=== PATIENT | male | born 1935 | race Caucasian/White ===

== ENCOUNTER → 2018-11-01 | Outpatient (CLI) | payer MEDICARE, BC ==
--- NOTE | 2018-11-01 13:24 | ECHOF ---
Referral Reason:R07.89 chest pain MEASUREMENTS -------- HEIGHT: 182.9 cm WEIGHT: 87.1 kg BP: RVIDd: 2.2 cm (< 3.3) IVSd: 1.1 cm (0.6 - 1.1) LVIDd: 3.5 cm (3.9 - 5.3) LVPWd: 1.3 cm (0.6 - 1.1) IVSs: 1.2 cm LVIDs: 2.3 cm LVPWs: 1.6 cm LA Diam: 5.7 cm (2.7 - 3.8) LAESV Index (A-L): 34.48 ml/m Ao Diam: 3.6 cm (2.0 - 3.7) AV Cusp: 1.9 cm (1.5 - 2.6) LA Diam: 3.4 cm (2.7 - 3.8) MV EXCURSION: 18.612 mm (> 18.000) MV EF SLOPE: 66 mm/s (70 - 150) EPSS: 0.5 cm MV E Cirilo: 0.74 m/s MV DecT: 275 ms MV A Cirilo: 0.79 m/s MV E/A Ratio: 0.94 RAP: 5.00 mmHg RVSP: 26.53 mmHg FINDINGS -------- Sinus rhythm. This was a technically good study. LV size, wall thickness and systolic function are normal, with an EF greater than 55%. The left monica tricular size is normal. The right ventricle is normal in size. The left atrium is markedly dilated. LA is moderately dilated 34-39 ml/m2 The right atrial size is normal. There is mild aortic valve sclerosis. There is no evidence of aortic regurgitation. Mild mitral annular calcification present. Mild mitral regurgitation is present. Mild tricuspid regurgitation present. There is no evidence of pulmonary hypertension. The right v entricular systolic pressure, as measured by Doppler, is 26.53mmHg. There is no pulmonic regurgitation present. The aortic root size is normal. There is no pericardial effusion. CONCLUSIONS -------- 1. LV size, wall thickness and systolic function are normal, with an EF greater than 55%. 2. The left ventricular size is normal. 3. The right ventricle is normal in size. 4. The left atrium is markedly dilated. 5. LA is moderately dilated 34-39 ml/m2 6. The right atrial size is normal. 7. There is mild aortic valve sclerosis. 8. Mild mitral annular calcification present. 9. Mild mitral regurgitation is present. 10. Mild tricuspid regurgitation present. 11. There is no evidence of pulmonary hypertension. 12. The right ventricular systolic pressure, as measured by Doppler, is 26.53mmHg. 13. There is no pulmonic regurgitation present. 14. The aortic root size is normal. 15. There is no pericardial effusion. HEARSE DRIVER: Jovita Daigle RDCS
--- NOTE | 2018-11-01 14:18 | EST ---
EXERCISE STRESS AGE: 82 SEX: M HT: 71 WT: 192 PROTOCOL: Kwabena Stress Test STAGE: 2 DURATION OF EXERCISE: 4:00 HEART RATE REST: 81 BLOOD PRESSURE REST: 157/92 MAXIMUM HEART RATE ACHIEVED: 118 MAXIMUM BLOOD PRESSURE: 157/67 85% MPHR: 117 100% MPHR: 138 METS: 5.8 INDICATIONS: Chest pain. CLINICAL INFORMATION: STRESS DATA: Pretesting physical examination showed heart rate of 81, pressure is 157/92 mmHg. Baseline EKG showed sinus mechanism. The patient exercised on the treadmill according to Kwabena protocol for a total of 4 minutes and achieved 5.8 METS. Max heart rate was 118, which is about 85% of maximum predicted heart rate. Maximum blood pressure was 157/67 mmHg. Clinically, the patient did not have any symptoms of chest pain or discomfort and the EKG did not show any significant ST or T-wave abnormalities concerning for ischemia. CONCLUSION: 1. Average exercise tolerance. 2. Normal EKG in response to exercise. 3. Essentially normal stress test for the patient. MMODL / IJN: [id number] /
== END | disposition home or self-care (01) ==
LOC: RADNMMAIN 10:54
PROVIDERS: ATTEND Nurse Practitioner Family
DX: I08.1 Rheumatic disorders of both mitral and tricuspid valves (principal); R10.84 Generalized abdominal pain; R07.89 Other chest pain
CPT/HCPCS: 93017; 93306

== ENCOUNTER → 2018-11-21 | Outpatient (CLI) | payer MEDICARE, BC ==
--- NOTE | 2018-11-21 13:10 | CT ---
EXAMINATION TYPE: CT abdomen wo con DATE OF EXAM: 11/21/2018 HISTORY: vomiting/ pain every 3rd day. GERD per order. CT DLP: 490 mGycm. Automated Exposure Control for Dose Reduction was Utilized. TECHNIQUE: CT scan of the abdomen is performed without oral or IV contrast. COMPARISON: Same day gallbladder ultrasound FINDINGS: Within the limitations of a non-contrast study, the following observations are made. LUNG BASES: In the left lung base medially there is focal pleural fluid collection measuring approxim ately 6.9 x 2.6 cm. Calcifications at level of mitral valve are noted. Tiny pericardial effusion is s een. LIVER/GB: Occasional subcentimeter lesions scattered throughout the liver are too small to further ch aracterize but presumed benign, for reference posterior segment right hepatic lobe axial image 14. PANCREAS: No significant abnormality is seen. SPLEEN: No significant abnormality is seen. ADRENALS: No significant abnormality is seen. KIDNEYS: There are 3 small calculi scattered throughout the right kidney measuring 3 mm or smaller in size. There are suspected 4-5 small calculi scattered throughout the left kidney measuring 2 mm or s maller in size. There is asymmetric mild generalized atrophy with mild/moderate cortical thinning in the left kidney. In addition there is mild to moderate left-sided hydronephrosis due to multiple obst ructing proximal to mid ureter calculi difficult to accurately measure due to confluent appearance, l argest measures up to 15 mm long axis axial image 45. I suspect 3 adjacent ureter calculi. Distal to this no hydroureter are seen. BOWEL: Evaluation of the bowel is slightly suboptimal study due to lack of enteric contrast. Distal e sophagus is suboptimally evaluated due to poor distention. There is mild fat stranding near the gastr oesophageal junction just below diaphragm. Stomach is poorly distended and thus suboptimally evaluate d. Duodenal sweep shows a few small diverticula along mesenteric surface third portion of duodenum me asuring up to 11 mm. There is no suspicious small or large bowel dilatation. There are scattered colo kemi diverticula without CT evidence for acute diverticulitis. LYMPH NODES: No greater than 1cm abdominal lymph nodes are appreciated. OSSEOUS STRUCTURES: There is moderate multilevel disc space narrowing and vacuum disc phenomenon as w ell as anterior spurring L2-L3 through the L5-S1 levels. Demineralization is present. OTHER: Moderate calcified plaque of aorta extends into branch vessels. IMPRESSION: 1. Suboptimal evaluation of distal esophagus and stomach without enteric contrast. Overall nonobstruc tive bowel gas pattern. Diffuse colonic diverticulosis noted. 2. Mild fat stranding or inflammatory change epigastric region just below diaphragm could be product of a diffuse gastritis, correlate clinically. 3. Bilateral nephrolithiasis with suspected 3 calculi measuring up to 15 mm in the proximal to mid le ft ureter causing mild to moderate left-sided hydronephrosis and cortical atrophy. Urology referral a dvised if this is not known finding. 4. Focal left medial basilar pleural fluid collection of uncertain etiology. Consider dedicated chest CT to further evaluate the remainder of the thorax.
--- NOTE | 2018-11-21 13:22 | US ---
EXAMINATION TYPE: US gallbladder DATE OF EXAM: 11/21/2018 COMPARISON: Same day CT abdomen study. CLINICAL HISTORY: R10.84 Abdominal Pain K21.9 GERD R63.4. GERD, pt states vomiting EXAM MEASUREMENTS: Liver Length: 16.1 cm Gallbladder Wall: 0.2 cm CBD: 0.2 cm Right Kidney: 11.0 x 5.4 x 5.9 cm Pancreas: Obscured by bowel gas Liver: wnl Gallbladder: wnl Evidence for sonographic Chen's sign: No CBD: wnl Right Kidney: wnl Pancreas is suboptimally seen on images saved secondary to shadowing from overlying bowel gas but cristóbal ears within normal limits on same day CT. Visualized liver is heterogeneous without intrahepatic duct al dilatation. Evaluation for focal masses is suboptimal due to the heterogeneity. Limited images of right kidney show no gross hydronephrosis. Small renal calculi on CT are less well seen on ultrasound . Gallbladder is seen without shadowing mobile gallstones. IMPRESSION: Suboptimal study but no shadowing mobile gallstones or ultrasound evidence for acute chol ecystitis.
== END | disposition home or self-care (01) ==
LOC: RADUSMAIN 11:56
PROVIDERS: ATTEND Family Medicine
DX: K57.30 Diverticulosis of large intestine without perforation or abscess without bleeding (principal); N26.1 Atrophy of kidney (terminal); N13.2 Hydronephrosis with renal and ureteral calculous obstruction; R63.4 Abnormal weight loss; R10.84 Generalized abdominal pain; K21.9 Gastro-esophageal reflux disease without esophagitis
CPT/HCPCS: 74150; 76705

== ENCOUNTER 2018-11-27 06:34 | Emergency (ER) | payer MEDICARE, BC ==
[2018-11-27] MEDS ORDERED: FAMOTIDINE 20 MG/2 ML VIAL IV STA (07:37)
[2018-11-27] MEDS ORDERED: ONDANSETRON 4 MG/2 ML VIAL IVP STA (07:37)
[2018-11-27] MEDS ORDERED: SODIUM CHLORIDE 0.9% 500 ML 500 ML IV STA (07:37)
--- NOTE | 2018-11-27 07:47 | ED ---
General Adult HPI - General Chief complaint: Abdominal Pain Stated complaint: Abdominal Pain Time Seen by Provider: 11/27/18 07:23 Source: patient, RN notes reviewed, old records reviewed Mode of arrival: ambulatory Limitations: no limitations - History of Present Illness Initial comments: Patient is an 82-year-old male presented to the emergency room today with a chief complaint of abdominal pain with nausea vomiting. Patient states she's had symptoms on and off over the last 2 months. He states she's follow-up the family doctor's had multiple test obtained. Patient states that the pain seems to come and go every other day. He states he woke up in the middle of night with increased pain had a difficult time sleeping. He did have episodes nausea vomiting with some dry heaving. Patient states the pain at this time is improved. Also admits that nausea is improved. Patient denies any other complaints or symptoms currently. Does admit that he is followed up and had an EGD performed. He states he seen a Dr Mancera. She also admits that he is supposed to follow-up with GI later next week to see Dr. Willoughby. Patient denies any recent fever, chills, shortness of breath, chest pain, back pain, numbness or tingling, dysuria or hematuria, constipation or diarrhea, headaches or visual changes, or any other complaints. - Related Data Home Medications Medication Instructions Recorded Confirmed Omeprazole 40 mg PO DAILY 11/27/18 11/27/18 Previous Rx's Medication Instructions Recorded Famotidine [Pepcid] 20 mg PO BID #20 tablet 11/27/18 Ondansetron Odt [Zofran ODT] 4 mg PO Q8HR PRN #20 tab 11/27/18 Allergies Allergy/AdvReac Type Severity Reaction Status Date / Time No Known Allergies Allergy Verified 11/27/18 08:20 Review of Systems ROS Statement: Those systems with pertinent positive or pertinent negative responses have been documented in the HPI. ROS Other: All systems not noted in ROS Statement are negative. Past Medical History Past Medical History: Diabetes Mellitus Additional Past Medical History / Comment(s): blood clots, spots on liver History of Any Multi-Drug Resistant Organisms: None Reported Past Surgical History: No Surgical Hx Reported Past Anesthesia/Blood Transfusion Reactions: Unable to Obtain Past Psychological History: No Psychological Hx Reported Smoking Status: Former smoker Past Alcohol Use History: Rare Past Drug Use History: None Reported General Exam - General Exam Comments Initial Comments: General: The patient is awake and alert, in no distress, and does not appear acutely ill. Eye: There is normal conjunctiva bilaterally. No signs of icterus. Ears, nose, mouth and throat: There are moist mucous membranes and no oral le sions. Neck: The neck is supple, there is no tenderness or JVD. Cardiovascular: There is a regular rate and rhythm. No murmur, rub or gallop is appreciated. Respiratory: Lungs are clear to auscultation, respirations are non-labored, breath sounds are equal. No wheezes, stridor, rales, or rhonchi. Gastrointestinal: Abdomen soft nontender on exam. Rebound, guarding or CVA tenderness. Musculoskeletal: Normal ROM, no tenderness. Strength 5/5. Sensation intact. Pulses equal bilaterally 2+. Neurological: A&O x 3. CN II-XII intact, There are no obvious motor or sensory deficits. Coordination appears grossly intact. Speech is normal. Skin: Skin is warm and dry and no rashes or lesions are noted. Psychiatric: Cooperative, appropriate mood & affect, normal judgment. Limitations: no limitations Course Vital Signs 11/27/18 07:04 Temperature 98.2 F Pulse Rate 81 Respiratory 20 Rate Blood Pressure 136/76 O2 Sat by Pulse 97 Oximetry Medical Decision Making - Medical Decision Making Patient examined at this time shows no signs of distress. Patient's labs been reviewed. X-ray reviewed and does show passes of a previous seen a kidney s tone. Was discussed with patient about possibility of stones causing some the symptoms. He does have an appointment with his urologist. Also has an appointment with GI. At this time patient's feeling better after Zofran, Pepcid. Will be given these as prescriptions to go home with. Patient will be advised follow-up the family doctor. Is advised return if any symptoms increase worsen or for any other concerns. - Lab Data Result diagrams: 11/27/18 08:30 11/27/18 08:30 Lab Results 11/27/18 11/27/18 11/27/18 Range/Units 08:30 08:30 08:30 WBC 7.8 (3.8-10.6) k/uL RBC 4.50 (4.30-5.90) m/uL Hgb 13.4 (13.0-17.5) gm/dL Hct 42.0 (39.0-53.0) % MCV 93.4 (80.0-100.0) fL MCH 29.9 (25.0-35.0) pg MCHC 32.0 (31.0-37.0) g/dL RDW 14.2 (11.5-15.5) % Plt Count 223 (150-450) k/uL Neutrophils % 84 % Lymphocytes % 7 % Monocytes % 7 % Eosinophils % 1 % Basophils % 0 % Neutrophils # 6.6 (1.3-7.7) k/uL Lymphocytes # 0.6 L (1.0-4.8) k/uL Monocytes # 0.5 (0-1.0) k/uL Eosinophils # 0.1 (0-0.7) k/uL Basophils # 0.0 (0-0.2) k/uL Sodium 139 (137-145) mmol/L Potassium 4.7 (3.5-5.1) mmol/L Chloride 107 (98-107) mmol/L Carbon Dioxide 24 (22-30) mmol/L Anion Gap 8 mmol/L BUN 23 H (9-20) mg/dL Creatinine 0.96 (0.66-1.25) mg/dL Est GFR (CKD-EPI)AfAm 85 (>60 ml/min/1.73 sqM) Est GFR (CKD-EPI)NonAf 74 (>60 ml/min/1.73 sqM) Glucose 152 H (74-99) mg/dL Calcium 9.1 (8.4-10.2) mg/dL Total Bilirubin 0.6 (0.2-1.3) mg/dL AST 21 (17-59) U/L ALT 27 (21-72) U/L Alkaline Phosphatase 64 (38-126) U/L Total Protein 6.2 L (6.3-8.2) g/dL Albumin 3.5 (3.5-5.0) g/dL Amylase 63 (30-110) U/L Lipase 98 (23-300) U/L Urine Color Yellow Urine Appearance Clear (Clear) Urine pH 7.0 (5.0-8.0) Ur Specific [place] 1.018 (1.001-1.035) Urine Protein Trace H (Negative) Urine Glucose (UA) Negative (Negative) Urine Ketones Negative (Negative) Urine Blood Negative (Negative) Urine Nitrite Negative (Negative) Urine Bilirubin Negative (Negative) Urine Urobilinogen <2.0 (<2.0) mg/dL Ur Leukocyte Esterase Negative (Negative) Disposition Clinical Impression: Abdominal pain Disposition: HOME SELF-CARE Condition: Good Instructions (If sedation given, give patient instructions): Abdominal Pain (ED) Additional Instructions: Please use medication as discussed. Please follow-up with urology/GI family doctor in the next 2 days of symptoms have not improved. Please return to emergency room if the symptoms increase or worsen or for any other concerns. Prescriptions: Famotidine [Pepcid] 20 mg PO BID #20 tablet Ondansetron Odt [Zofran ODT] 4 mg PO Q8HR PRN #20 tab PRN Reason: Nausea Is patient prescribed a controlled substance at d/c from ED?: No Referrals: Rafael Marcelino Jr, [Primary Care Provider] - 1-2 days Time of Disposition: 09:39
[2018-11-27 08:53] LABS: Appearance,Urine Clear (Clear); Bilirubin,Urine Negative (Negative); Blood,Urine Negative (Negative); Color,Urine Yellow; Glucose,Urine (UA) Negative (Negative); Ketones,Urine Negative (Negative); Leukocyte Esterase,Urine Negative (Negative); Nitrite,Urine Negative (Negative); Protein,Urine Trace (Negative); Specific Gravity,Urine 1.018 (1.001-1.035); Urobilinogen,Urine <2.0 mg/dL (<2.0)
[2018-11-27 09:00] LABS: Basophils % (A) 0 %; Eosinophils # (A) 0.1 k/uL (0-0.7); Eosinophils % (A) 1 %; HGB 13.4 gm/dL (13.0-17.5); Lymphocytes # (A) 0.6 k/uL (1.0-4.8); Lymphocytes % (A) 7 %; MCH 29.9 pg (25.0-35.0); MCV 93.4 fL (80.0-100.0); Mean Platelet Volume 7.1; Monocytes # (A) 0.5 k/uL (0-1.0); Monocytes % (A) 7 %; Neutrophils # (A) 6.6 k/uL (1.3-7.7); Neutrophils % (A) 84 %; Platelet Count 223 k/uL (150-450); RDW 14.2 % (11.5-15.5); WBC 7.8 k/uL (3.8-10.6)
--- NOTE | 2018-11-27 09:02 | XR ---
EXAMINATION TYPE: XR KUB DATE OF EXAM: 11/27/2018 8:56 AM CLINICAL HISTORY: Intermittent abdominal pain and vomiting TECHNIQUE: Single supine KUB image of the abdomen is obtained. COMPARISON: 11/16/2009. FINDINGS: There are multiple rounded calculi along the course of the left ureter that were located al brian the left renal shadow in 2009. These mold technician 1.7 cm, 1.0 cm and 0.7 cm. Multiple new calcificati ons are also seen within the pelvis that may represent phleboliths or less likely urinary bladder mercy culi. Stable right renal calculus is approximately 8 mm is seen in comparison to thousand 10. The pre viously seen 5 mm calculus is no longer visualized. Moderate degenerative changes are seen of the thoracolumbar spine with likely degenerative sclerosis at the pubic symphysis and sacroiliac joints inferiorly. No dilated large or small bowel. Lung bases are well aerated. IMPRESSION: 1. There are 3 calculi along the course of the left ureter previously seen overlying the left renal s hadow in 2009. 2. Interval passage of a 5 mm right renal calculus and unchanged 8 mm right renal calculus.
[2018-11-27 09:08] LABS: Albumin 3.5 g/dL (3.5-5.0); Calcium 9.1 mg/dL (8.4-10.2); Potassium 4.7 mmol/L (3.5-5.1); Total Bilirubin 0.6 mg/dL (0.2-1.3); Total Protein 6.2 g/dL (6.3-8.2)
[2018-11-27 10:10] VITALS: BP 140/76; PULSE 64; RESP 18; TEMP 97.8
== END 2018-11-27 10:10 | disposition home or self-care (01) ==
LOC: EC 06:34
DX: R10.9 Unspecified abdominal pain (principal); R11.2 Nausea with vomiting, unspecified; Z79.899 Other long term (current) drug therapy; Z87.891 Personal history of nicotine dependence
CPT/HCPCS: 36415; 80053; 82150; 83690; 85025; 81003; 74018; 99284; 96374; 96375; 96361; J2405

== ENCOUNTER 2018-12-11 14:56 | Inpatient (IN) | payer MEDICARE, BC ==
[2018-12-11] MEDS ORDERED: NITROGLYCERIN OINT 1 INCH/GM PACKET TOPICAL STA (15:18)
[2018-12-11] MEDS ORDERED: ASPIRIN 81 MG PO STA (15:18)
--- NOTE | 2018-12-11 15:26 | ED ---
General Adult HPI - General Chief complaint: Chest Pain Stated complaint: Kidney stones, chest pain Time Seen by Provider: 12/11/18 15:00 Source: patient, RN notes reviewed Mode of arrival: ambulatory Limitations: no limitations - History of Present Illness Initial comments: This is an 82-year-old male who presents emergency Department complaining of ab dominal pain that radiates into his chest and down his left arm. Patient states his been ongoing intermittently for the last 6 months. Patient states today's episode lasted 2 hours. Patient states associated with the pain is usually some nausea. Patient states he had a kidney stone removed yesterday and when he called his urologist urologist recommended he come to the emergency department for the chest pain. Patient states currently he is chest pain-free. Patient denies any radiation to the back or neck. Patient denies any history of high blood pressure or high cholesterol. Patient states he is a diabetic but he does not smoke. Patient denies any associated diaphoresis. Patient denies any leg swelling or calf tenderness. Patient states he does not notice anything that makes symptoms better or worse. Patient states he has had a recent stress test which was normal. - Related Data Home Medications Medication Instructions Recorded Confirmed Acetaminophen Tab [Tylenol Tab] 650 mg PO Q4H PRN 12/11/18 12/11/18 Allergies Allergy/AdvReac Type Severity Reaction Status Date / Time No Known Allergies Allergy Verified 12/11/18 15:13 Review of Systems ROS Statement: Those systems with pertinent positive or pertinent negative responses have been documented in the HPI. ROS Other: All systems not noted in ROS Statement are negative. Past Medical History Past Medical History: Diabetes Mellitus Additional Past Medical History / Comment(s): blood clots, spots on liver History of Any Multi-Drug Resistant Organisms: None Reported Past Surgical History: No Surgical Hx Reported Past Anesthesia/Blood Transfusion Reactions: Unable to Obtain Past Psychological History: No Psychological Hx Reported Smoking Status: Former smoker Past Alcohol Use History: Rare Past Drug Use History: None Reported General Exam - General Exam Comments Initial Comments: GENERAL: Patient is well-developed and well-nourished. Patient is nontoxic and well- hydrated and is in mild distress. ENT: Neck is soft and supple. No significant lymphadenopathy is noted. Oropharynx is clear. Moist mucous membranes. Neck has full range of motion without eliciting any pain. EYES: The sclera were anicteric and conjunctiva were pink and moist. Extraocular mo vements were intact and pupils were equal round and reactive to light. Eyelids were unremarkable. PULMONARY: Unlabored respirations. Good breath sounds bilaterally. No audible rales rhonchi or wheezing was noted. CARDIOVASCULAR: There is a regular rate and rhythm without any murmurs gallops or rubs. ABDOMEN: Soft and nontender with normal bowel sounds. No palpable organomegaly was noted. There is no palpable pulsatile mass. SKIN: Skin is clear with no lesions or rashes and otherwise unremarkable. NEUROLOGIC: Patient is alert and oriented x3. Cranial nerves II through XII are grossly intact. Motor and sensory are also intact. Normal speech, volume and content. Symmetrical smile. MUSCULOSKELETAL: Normal extremities with adequate strength and full range of motion. LYMPHATICS: No significant lymphadenopathy is noted PSYCHIATRIC: Normal psychiatric evaluation. Limitations: no limitations Course Vital Signs 12/11/18 12/11/18 14:59 17:36 Temperature 98.3 F 98.1 F Pulse Rate 88 84 Respiratory 16 17 Rate Blood Pressure 209/101 117/81 O2 Sat by Pulse 97 97 Oximetry Medical Decision Making - Medical Decision Making EKG shows normal sinus rhythm at 87 bpm WA interval 280 QRS is 98 QT interval 380 QTC is 457. Patient's EKG shows no ST segment elevation or depression or T wave abnormalities are noted. Patient was nauseated while in the emergency department vomited times one. I gave the patient Zofran. Patient stated after the vomiting he didn't feel considerably better. Patient's blood pressure was elevated in the emergency department give the patient on hydralazine about patient blood pressure into a normal range. Chest x-ray showed a large hiatal hernia on the left. I spoke with Dr. Marcelino he agreed to admit the patient admitted the patient I consult cardiology. I wrote admitting orders. - Lab Data Result diagrams: 12/11/18 15:45 12/11/18 15:45 Lab Results 12/11/18 12/11/18 12/11/18 Range/Units 15:45 15:45 15:45 WBC 5.8 (3.8-10.6) k/uL RBC 4.61 (4.30-5.90) m/uL Hgb 14.0 (13.0-17.5) gm/dL Hct 43.2 (39.0-53.0) % MCV 93.7 (80.0-100.0) fL MCH 30.3 (25.0-35.0) pg MCHC 32.3 (31.0-37.0) g/dL RDW 13.9 (11.5-15.5) % Plt Count 215 (150-450) k/uL Neutrophils % 77 % Lymphocytes % 12 % Monocytes % 6 % Eosinophils % 2 % Basophils % 1 % Neutrophils # 4.5 (1.3-7.7) k/uL Lymphocytes # 0.7 L (1.0-4.8) k/uL Monocytes # 0.4 (0-1.0) k/uL Eosinophils # 0.1 (0-0.7) k/uL Basophils # 0.0 (0-0.2) k/uL PT 9.7 (9.0-12.0) sec INR 0.9 (<1.2) APTT 22.6 (22.0-30.0) sec Sodium 142 (137-145) mmol/L Potassium 4.6 (3.5-5.1) mmol/L Chloride 104 (98-107) mmol/L Carbon Dioxide 29 (22-30) mmol/L Anion Gap 9 mmol/L BUN 26 H (9-20) mg/dL Creatinine 1.15 (0.66-1.25) mg/dL Est GFR (CKD-EPI)AfAm 69 (>60 ml/min/1.73 sqM) Est GFR (CKD-EPI)NonAf 59 (>60 ml/min/1.73 sqM) Glucose 107 H (74-99) mg/dL Calcium 9.7 (8.4-10.2) mg/dL Magnesium 1.7 (1.6-2.3) mg/dL Total Bilirubin 0.5 (0.2-1.3) mg/dL AST 32 (17-59) U/L ALT 37 (21-72) U/L Alkaline Phosphatase 79 (38-126) U/L Troponin I (0.000-0.034) ng/mL Total Protein 6.7 (6.3-8.2) g/dL Albumin 3.9 (3.5-5.0) g/dL 12/11/18 Range/Units 15:45 WBC (3.8-10.6) k/uL RBC (4.30-5.90) m/uL Hgb (13.0-17.5) gm/dL Hct (39.0-53.0) % MCV (80.0-100.0) fL MCH (25.0-35.0) pg MCHC (31.0-37.0) g/dL RDW (11.5-15.5) % Plt Count (150-450) k/uL Neutrophils % % Lymphocytes % % Monocytes % % Eosinophils % % Basophils % % Neutrophils # (1.3-7.7) k/uL Lymphocytes # (1.0-4.8) k/uL Monocytes # (0-1.0) k/uL Eosinophils # (0-0.7) k/uL Basophils # (0-0.2) k/uL PT (9.0-12.0) sec INR (<1.2) APTT (22.0-30.0) sec Sodium (137-145) mmol/L Potassium (3.5-5.1) mmol/L Chloride (98-107) mmol/L Carbon Dioxide (22-30) mmol/L Anion Gap mmol/L BUN (9-20) mg/dL Creatinine (0.66-1.25) mg/dL Est GFR (CKD-EPI)AfAm (>60 ml/min/1.73 sqM) Est GFR (CKD-EPI)NonAf (>60 ml/min/1.73 sqM) Glucose (74-99) mg/dL Calcium (8.4-10.2) mg/dL Magnesium (1.6-2.3) mg/dL Total Bilirubin (0.2-1.3) mg/dL AST (17-59) U/L ALT (21-72) U/L Alkaline Phosphatase (38-126) U/L Troponin I <0.012 (0.000-0.034) ng/mL Total Protein (6.3-8.2) g/dL Albumin (3.5-5.0) g/dL Disposition Clinical Impression: Chest pain, Hypertension, Hiatal hernia, Nausea Disposition: ADMITTED IP TO THIS [facility] Referrals: Rafael Marcelino Jr, DO [Primary Care Provider] - 1-2 days Time of Disposition: 17:43
[2018-12-11 15:56] LABS: Basophils % (A) 1 %; Eosinophils # (A) 0.1 k/uL (0-0.7); Eosinophils % (A) 2 %; HCT 43.2 % (39.0-53.0); Lymphocytes # (A) 0.7 k/uL (1.0-4.8); Lymphocytes % (A) 12 %; MCH 30.3 pg (25.0-35.0); MCHC 32.3 g/dL (31.0-37.0); MCV 93.7 fL (80.0-100.0); Mean Platelet Volume 6.7; Monocytes # (A) 0.4 k/uL (0-1.0); Monocytes % (A) 6 %; Neutrophils # (A) 4.5 k/uL (1.3-7.7); Neutrophils % (A) 77 %; Platelet Count 215 k/uL (150-450); RBC 4.61 m/uL (4.30-5.90); RDW 13.9 % (11.5-15.5); WBC 5.8 k/uL (3.8-10.6)
[2018-12-11 16:08] LABS: Albumin 3.9 g/dL (3.5-5.0); Calcium 9.7 mg/dL (8.4-10.2); Magnesium 1.7 mg/dL (1.6-2.3); Potassium 4.6 mmol/L (3.5-5.1); Total Bilirubin 0.5 mg/dL (0.2-1.3); Total Protein 6.7 g/dL (6.3-8.2)
--- NOTE | 2018-12-11 16:09 | XR ---
EXAMINATION TYPE: XR chest 2V DATE OF EXAM: 12/11/2018 COMPARISON: Correlation CT 11/21/2018 HISTORY: 82-year-old male with chest pain TECHNIQUE: PA and lateral views FINDINGS: Heart normal size. Aorta and pulmonary vasculature are within normal limits. There is an-year-old rou nded density in the retrocardiac region and left base with an air-fluid level, likely herniated stoma ch. Remaining lungs and pleural spaces appear clear. IMPRESSION: New large rounded retrocardiac and left basilar density containing an air-fluid level. Given findings on the CT of 11/21/2018, this suggests prominent distention of a moderate sized hernia.
[2018-12-11 16:15] LABS: INR 0.9 (<1.2); Partial Thromboplastin Time 22.6 sec (22.0-30.0); Prothrombin Time 9.7 sec (9.0-12.0)
[2018-12-11] MEDS ORDERED: hydrALAZINE HCL 20 MG/ML 1 ML VIAL IVP STA ×2 (16:23)
[2018-12-11] MEDS ORDERED: ONDANSETRON 4 MG/2 ML VIAL IVP STA (17:33)
[2018-12-11] MEDS ORDERED: NITROGLYCERIN SL TABS 0.4 MG TAB SUBLINGUAL PRN (17:43)
[2018-12-11] MEDS ORDERED: ACETAMINOPHEN TAB 325 MG TAB PO PRN (18:35)
[2018-12-11] MEDS ORDERED: ACETAMINOPHEN TAB 325 MG TAB PO STA (18:37)
[2018-12-11] MEDS: NITROGLYCERIN OINT 1 INCH/GM PACKET TOPICAL SCH (19:13)
[2018-12-11 20:51] LABS: Glucose,Whole Blood 130 mg/dL (75-99)
[2018-12-11] MEDS ORDERED: HYDROcodone/APAP 5-325MG 1 EACH TAB PO PRN (21:24)
[2018-12-12] MEDS: NITROGLYCERIN OINT 1 INCH/GM PACKET TOPICAL SCH
[2018-12-12] MEDS ORDERED: ONDANSETRON 4 MG/2 ML VIAL IVP PRN (02:10)
[2018-12-12] MEDS: hydrALAZINE HCL 20 MG/ML 1 ML VIAL IVP SCH ×3 (02:28→20:07)
[2018-12-12 04:03] LABS: Cholesterol 209 mg/dL (<200); HDL Cholesterol 62 mg/dL (40-60); LDL Cholesterol,Calculated 125 mg/dL (0-99); Triglycerides 108 mg/dL (<150)
[2018-12-12 06:39] LABS: Glucose,Whole Blood 196 mg/dL (75-99)
--- NOTE | 2018-12-12 10:29 | P.CRDCN ---
History of Present Illness History of present illness: This is a pleasant 82-year-old male past medical history significant for former nicotine dependence, diabetes mellitus and kidney stones with recent lithotripsy per Dr. Wallace 12/10/2018. He recently established in the office with Dr. Willoughby due to chest pain. He underwent an exercise stress test in October that was normal but with poor exercise tolerance. He also continued to have vague atypical non-specific chest pains thereafter. Dr. Willoughby has him scheduled to undergo a nuclear stress test tomorrow in the office. However he came to the emergency department due to significant abdominal pain, nausea and vomiting. He states his symptoms started yesterday and has been getting progressively worse. Initially after surgery he was asymptomatic. He called Dr. Wallace and was advised to come in for further evaluation. He does have intermittent discomfort in the chest that radiates up from the abdomen described as a tight sensation that is not associated with exertion. He denies shortness of breath, dizziness or palpitations. He states he has seen Dr. Mancera in the past for his hernia and was recommended no surgical intervention at that time. Currently he is seen and examined resting comfortably in bed laying flat. He has ongoing nausea and pain in the left lower abdomen. No active vomiting and his chest pain has subsided. EKG reveals sinus mechanism with poor R-wave progression. Consistent with previous EKGs. No acute changes. Chest x-ray obtained reveals left basilar fluid filled collection density possible large hiatal hernia. Laboratory data reviewed, WBC 5.8, hemoglobin 14, platelets 215, sodium 142, potassium 4.6, creatinine 1.15, magnesium 1.7, cardiac enzymes negative 3, LDL 125 and HDL 62. He takes no daily cardiac medications. At the time of my exam: CONSTITUTIONAL: Denies fever. Denies chills. EYES: Denies blurred vision. Denies vision changes. Denies eye pain. EARS, NOSE, MOUTH & THROAT: Denies headache. Denies sore throat. Denies ear pain. CARDIOVASCULAR: Denies chest pain. Denies shortness of breath. Denies orthopnea. Denies PND. Denies palpitations. RESPIRATORY: Denies cough. GASTROINTESTINAL: Complains of abdominal pain. Denies diarrhea. Denies constipation. Complains of nausea and vomiting. MUSCULOSKELETAL: Denies myalgias. INTEGUMENTARY: Denies pruitis. Denies rash. NEUROLOGIC: Denies numbness. Denies tingling. Denies weakness. PSYCHIATRIC: Denies anxiety. Denies depression. ENDOCRINE: Denies fatigue. Denies weight change. Denies polydipsia. Denies polyurina. GENITOURINARY: Denies burning, hematuria or urgency with micturation. HEMATOLOGIC: Denies history of anemia. Denies bleeding. Blood pressure 184/99 heart rate 98 afebrile maintaining oxygen saturation on room air GENERAL: This is a 82-year-old male in no apparent distress at the time of my examination. HEENT: Head is atraumatic, normocephalic. Pupils are equal, round. Sclerae anicteric. Conjunctivae are clear. Mucous membranes of the mouth are moist. Neck is supple. There is no jugular venous distention. No carotid bruit is heard. LUNGS: Clear to auscultation no wheezes, rales or rhonchi. No chest wall tenderness is noted on palpation or with deep breathing. HEART: Regular rate and rhythm without murmurs, rubs or gallops. S1 and S2 heard. ABDOMEN: Soft, nontender. Bowel sounds are heard. No organomegaly noted. EXTREMITIES: No evidence of peripheral edema and no calf tenderness noted. VASCULAR: Radial and dorsalis pedis pulses palpated, no evidence of clubbing. NEUROLOGIC: Patient is awake, alert and oriented x3. ASSESSMENT Chest pain, atypical for angina. An acute coronary event has been ruled out. Abdominal discomfort with nausea and vomiting Hiatal hernia History of kidney stones status post surgical removal December 10, [address] Wallace PLAN Recommend further evaluation of hiatal hernia with CT of the chest. Consult with surgery, the patient has seen Dr. Stinson in the past. Once he has been seen and evaluated by Dr. Wallace and Dr. Mancera we will consider doing his nuclear stress test while he is here in the hospital. Further recommendations to follow. Thank you kindly for this consultation. Nurse Practitioner note has been reviewed, I agree with a documented findings and plan of care. Patient was seen and examined. Past Medical History Past Medical History: Diabetes Mellitus Additional Past Medical History / Comment(s): blood clots, spots on liver History of Any Multi-Drug Resistant Organisms: None Reported Past Surgical History: No Surgical Hx Reported Additional Past Surgical History / Comment(s): kidney stones removed Past Anesthesia/Blood Transfusion Reactions: No Reported Reaction Additional Past Anesthesia/Blood Transfusion Reaction / Comment(s): First time having anesthesia yesterday 12/10/18 for kidney stone removal. Pt states that he did not have any side effects to anesthesia. Past Psychological History: No Psychological Hx Reported Smoking Status: Former smoker Past Alcohol Use History: Rare Additional Past Alcohol Use History / Comment(s): Quit smoking 40 years ago. pt states that he smoked about 1 pack per week. Past Drug Use History: None Reported - Past Family History Mother Family Medical History: Diabetes Mellitus Additional Family Medical History / Comment(s): kidney failure. at 49 Father Additional Family Medical History / Comment(s): Parkinson's Medications and Allergies Home Medications Medication Instructions Recorded Confirmed Type Acetaminophen Tab [Tylenol Tab] 650 mg PO Q4H PRN 12/11/18 12/11/18 History Allergies Allergy/AdvReac Type Severity Reaction Status Date / Time No Known Allergies Allergy Verified 12/11/18 15:13 Physical Exam Vitals: Vital Signs Temp Pulse Pulse Resp BP BP BP 12/12/18 07:33 98.2 F 98 18 184/99 12/12/18 03:28 98.9 F 86 16 146/63 12/12/18 02:27 96 187/96 12/12/18 02:00 82 194/84 12/11/18 23:30 16 12/11/18 23:28 99.0 F 86 16 165/80 12/11/18 20:00 16 12/11/18 19:18 97.8 F 94 16 142/65 12/11/18 18:00 85 18 12/11/18 17:36 98.1 F 84 17 117/81 12/11/18 17:00 186/103 12/11/18 16:30 79 19 205/110 12/11/18 16:00 86 17 203/113 12/11/18 15:30 84 18 207/103 12/11/18 14:59 98.3 F 88 16 209/101 Pulse Ox 12/12/18 07:33 95 12/12/18 03:28 96 12/12/18 02:27 12/12/18 02:00 12/11/18 23:30 12/11/18 23:28 94 L 12/11/18 20:00 12/11/18 19:18 94 L 12/11/18 18:00 95 12/11/18 17:36 97 12/11/18 17:00 12/11/18 16:30 96 12/11/18 16:00 97 12/11/18 15:30 97 12/11/18 14:59 97 Intake and Output 12/11/18 12/12/18 12/12/18 22:59 06:59 14:59 Other: Voiding Method Toilet Toilet # Voids 2 0 Results 12/11/18 15:45 12/11/18 15:45 Cardiac Enzymes 12/11/18 12/11/18 12/11/18 Range/Units 15:45 15:45 22:10 AST 32 (17-59) U/L Troponin I <0.012 <0.012 (0.000-0.034) ng/mL 12/12/18 Range/Units 03:24 AST (17-59) U/L Troponin I <0.012 (0.000-0.034) ng/mL Coagulation 12/11/18 Range/Units 15:45 PT 9.7 (9.0-12.0) sec APTT 22.6 (22.0-30.0) sec Lipids 12/12/18 Range/Units 03:24 Triglycerides 108 (<150) mg/dL Cholesterol 209 H (<200) mg/dL HDL Cholesterol 62 H (40-60) mg/dL CBC 12/11/18 Range/Units 15:45 WBC 5.8 (3.8-10.6) k/uL RBC 4.61 (4.30-5.90) m/uL Hgb 14.0 (13.0-17.5) gm/dL Hct 43.2 (39.0-53.0) % Plt Count 215 (150-450) k/uL Comprehensive Metabolic Panel 12/11/18 Range/Units 15:45 Sodium 142 (137-145) mmol/L Potassium 4.6 (3.5-5.1) mmol/L Chloride 104 (98-107) mmol/L Carbon Dioxide 29 (22-30) mmol/L BUN 26 H (9-20) mg/dL Creatinine 1.15 (0.66-1.25) mg/dL Glucose 107 H (74-99) mg/dL Calcium 9.7 (8.4-10.2) mg/dL AST 32 (17-59) U/L ALT 37 (21-72) U/L Alkaline Phosphatase 79 (38-126) U/L Total Protein 6.7 (6.3-8.2) g/dL Albumin 3.9 (3.5-5.0) g/dL Current Medications Generic Name Dose Route Start Last Admin Trade Name Freq PRN Reason Stop Dose Admin Acetaminophen 650 mg 12/11/18 18:35 Tylenol Tab PO Q6HR PRN Fever and/ or Pain Hydrocodone Bitart/Acetaminophen 1 each 12/11/18 21:24 12/11/18 22:57 [employer] 5-325 PO 1 each Q6HR PRN Administration Pain Aspirin 325 mg 12/12/18 09:00 Aspirin PO DAILY [facility] Hydralazine HCl 10 mg 12/12/18 02:15 12/12/18 02:28 Apresoline IVP 10 mg Q8H PATY Administration Insulin Aspart 0 unit 12/12/18 07:30 Novolog SQ ACHS [facility] Protocol Nitroglycerin 1 inch 12/11/18 18:00 12/12/18 00:00 Nitro-Bid Oint TOPICAL Not Given Q6HR [facility] Nitroglycerin 0.4 mg 12/11/18 17:43 Nitrostat SUBLINGUAL Q5M PRN Chest Pain Ondansetron HCl 4 mg 12/12/18 02:10 12/12/18 05:55 Zofran IVP 4 mg Q6HR PRN Administration Nausea And Vomiting Intake and Output 12/11/18 12/12/18 12/12/18 22:59 06:59 14:59 Other: Voiding Method Toilet Toilet # Voids 2 0 12/11/18 15:45 12/11/18 15:45
[2018-12-12] MEDS: INSULIN ASPART (NovoLOG) 100 UNIT/ML VIAL SQ SCH ×4 (10:42→20:08)
[2018-12-12] MEDS: ASPIRIN 325 MG TAB PO SCH (10:42)
--- NOTE | 2018-12-12 10:47 | P.GSCN ---
History of Present Illness Consult date: 12/12/18 History of present illness: the patient is an 82-year-old gentleman who underwent left ureteroscopy and laser lithotripsy by 48 hours ago for a large ureteral stone. The removal was incomplete. A double-J catheter was placed. The patient contacted yesterday because of some chest discomfort. He was directed to the emergency room. He was placed in observation because of the chest discomfort. He had a CAT scan of the chest which identified a stomach that was extremely distended with gas and air. An NG tube was placed and his discomfort is sub sided dramatically. He has had no problems voiding since surgery. He has had no lower abdominal pain. He has had no back pain. He is feeling much better with over a liter of fluid out of the NG tube.the patient states that he had a bowel movement yesterday morning. Review of Systems - Constitutional Reports as per HPI - Cardiovascular Reports as per HPI - Gastrointestinal Reports as per HPI - Genitourinary Reports as per HPI Past Medical History Past Medical History: Diabetes Mellitus Additional Past Medical History / Comment(s): blood clots, spots on liver History of Any Multi-Drug Resistant Organisms: None Reported Past Surgical History: No Surgical Hx Reported Additional Past Surgical History / Comment(s): kidney stones removed Past Anesthesia/Blood Transfusion Reactions: No Reported Reaction Additional Past Anesthesia/Blood Transfusion Reaction / Comm: First time having anesthesia yesterday 12/10/18 for kidney stone removal. Pt states that he did not have any side effects to anesthesia. Past Psychological History: No Psychological Hx Reported Smoking Status: Former smoker Past Alcohol Use History: Rare Additional Past Alcohol Use History / Comment(s): Quit smoking 40 years ago. pt states that he smoked about 1 pack per week. Past Drug Use History: None Reported - Past Family History Mother Family Medical History: Diabetes Mellitus Additional Family Medical History / Comment(s): kidney failure. at 49 Father Additional Family Medical History / Comment(s): Parkinson's Medications and Allergies Home Medications Medication Instructions Recorded Confirmed Type Acetaminophen Tab [Tylenol Tab] 650 mg PO Q4H PRN 12/11/18 12/11/18 History Allergies Allergy/AdvReac Type Severity Reaction Status Date / Time No Known Allergies Allergy Verified 12/11/18 15:13 Surgical - Exam Vital Signs Temp Pulse Resp BP Pulse Ox 98.3 F 88 16 209/101 97 12/11/18 14:59 12/11/18 14:59 12/11/18 14:59 12/11/18 14:59 12/11/18 14:59 - General well developed, well nourished, no distress - Eyes PERRL - ENT no hearing loss - Neck trachea midline - Respiratory normal expansion - Cardiovascular Rhythm: regular - Abdomen the patient's abdomen is slightly distended but soft. He has an NG tube in place with over a liter of fluid in the canister. - Genitourinary normal penis with no external lesions, testicles present - Integumentary no rash, no growths - Neurologic normal coordination, normal sensation - Musculoskeletal normal posture - Psychiatric oriented to time, oriented to person, oriented to place, speech is normal, memory intact Results - Labs 12/11/18 15:45 12/11/18 15:45 Abnormal Lab Results - Last 24 Hours (Table) 12/11/18 12/11/18 12/11/18 Range/Units 15:45 15:45 20:47 Lymphocytes # 0.7 L (1.0-4.8) k/uL BUN 26 H (9-20) mg/dL Glucose 107 H (74-99) mg/dL POC Glucose (mg/dL) 130 H (75-99) mg/dL Cholesterol (<200) mg/dL LDL Cholesterol, Calc (0-99) mg/dL HDL Cholesterol (40-60) mg/dL 12/12/18 12/12/18 Range/Units 03:24 06:38 Lymphocytes # (1.0-4.8) k/uL BUN (9-20) mg/dL Glucose (74-99) mg/dL POC Glucose (mg/dL) 196 H (75-99) mg/dL Cholesterol 209 H (<200) mg/dL LDL Cholesterol, Calc 125 H (0-99) mg/dL HDL Cholesterol 62 H (40-60) mg/dL Diabetes panel 12/11/18 12/12/18 Range/Units 15:45 03:24 Sodium 142 (137-145) mmol/L Potassium 4.6 (3.5-5.1) mmol/L Chloride 104 (98-107) mmol/L Carbon Dioxide 29 (22-30) mmol/L BUN 26 H (9-20) mg/dL Creatinine 1.15 (0.66-1.25) mg/dL Glucose 107 H (74-99) mg/dL Calcium 9.7 (8.4-10.2) mg/dL AST 32 (17-59) U/L ALT 37 (21-72) U/L Alkaline Phosphatase 79 (38-126) U/L Total Protein 6.7 (6.3-8.2) g/dL Albumin 3.9 (3.5-5.0) g/dL Triglycerides 108 (<150) mg/dL HDL Cholesterol 62 H (40-60) mg/dL Calcium panel 12/11/18 Range/Units 15:45 Calcium 9.7 (8.4-10.2) mg/dL Albumin 3.9 (3.5-5.0) g/dL Pituitary panel 12/11/18 Range/Units 15:45 Sodium 142 (137-145) mmol/L Potassium 4.6 (3.5-5.1) mmol/L Chloride 104 (98-107) mmol/L Carbon Dioxide 29 (22-30) mmol/L BUN 26 H (9-20) mg/dL Creatinine 1.15 (0.66-1.25) mg/dL Glucose 107 H (74-99) mg/dL Calcium 9.7 (8.4-10.2) mg/dL Adrenal panel 12/11/18 Range/Units 15:45 Sodium 142 (137-145) mmol/L Potassium 4.6 (3.5-5.1) mmol/L Chloride 104 (98-107) mmol/L Carbon Dioxide 29 (22-30) mmol/L BUN 26 H (9-20) mg/dL Creatinine 1.15 (0.66-1.25) mg/dL Glucose 107 H (74-99) mg/dL Calcium 9.7 (8.4-10.2) mg/dL Total Bilirubin 0.5 (0.2-1.3) mg/dL AST 32 (17-59) U/L ALT 37 (21-72) U/L Alkaline Phosphatase 79 (38-126) U/L Total Protein 6.7 (6.3-8.2) g/dL Albumin 3.9 (3.5-5.0) g/dL - Imaging CT scan - chest: report reviewed, image reviewed Assessment and Plan Assessment: impression: Postoperative ileus leading to chest pain. That is post ureteroscopy with laser lithotripsy. History of diabetes. Recommendations: Consult for Dr. Mancera is been placed. The NG tube should be left in place until Dr. Mancera feels it can be removed.I ordered IV fluids as well as ambulation.
[2018-12-12] MEDS: DEXTROSE 5%-0.45% NACL 1,000 ML IV SCH ×2 (10:53→20:13)
--- NOTE | 2018-12-12 10:58 | CT ---
EXAMINATION TYPE: CT chest wo con DATE OF EXAM: 12/12/2018 COMPARISON: None HISTORY: Chest pain, HTN, and hiatal hernia CT DLP: 342.4 mGycm, Automated exposure control for dose reduction was used. CONTRAST: Performed injected with 0 mL of Isovue 300. TECHNIQUE: Axial images were obtained at 5 mm thick sections. Reconstructed images are reviewed on [employer] computer in the coronal plane. FINDINGS: Portion of the thyroid visualized is normal. Mild infiltrate is along the posterior lateral left lung base can related atelectasis or pneumonia. F ollow-up is recommended. Minimal bilateral pleural effusions are present. Small pericardial effusion measuring approximately 1 .3 cm is present. No enlarged mediastinal or hilar adenopathy is evident. The ascending aorta diameter at the level o f the main pulmonary artery is 3.4 cm. The main pulmonary artery diameter at the bifurcation is 2.3 cm. Moderate coronary artery calcifications present. Limited CT sections are obtained through the upper abdomen. There is a hiatal hernia which appears to be within the mediastinum displacing the heart and right atrium. Note is made of distended stomach with fluid within the abdomen. IMPRESSIONS: 1. Small bilateral pleural effusions. Small pericardial effusion may be present inferiorly. 2. Left posterior lateral infiltrate.: For atelectasis or pneumonia. 3. Small pericardial effusion. 4. Hiatal hernia appears to be in the middle mediastinum at the base is displacing the heart.
[2018-12-12 11:45] LABS: Glucose,Whole Blood 219 mg/dL (75-99)
--- NOTE | 2018-12-12 12:37 | P.GSCN ---
History of Present Illness Consult date: 12/12/18 Reason for Consult: Hiatal hernia History of present illness: Patient was as the hospital complaining of chest pain. He was having bad episodes of vomiting. The patient is known to our service from a recent upper endoscopy. The patient was being worked up for a possible hiatal hernia. No definite hiatal hernia was seen on the recent upper endoscopy. The patient has had 2 CAT scans one last month and one this morning. On this morning's CAT scan there appears to be a hernia of the hiatus which contains the antrum and proximal duodenum and causing some degree of obstruction given the presence of a very large distended stomach. This interestingly enough was not seen on the CAT scan from November. Nasogastric tube was placed which led to almost complete resolution of his pain. Over 1 L of gastric contents were evacuated. Patient describes frequent episodes of vomiting every 3-4 days while at home. CAT scan finding certainly would help to explain the symptoms. Patient's white blood cell count is normal. No tachycardia. No fevers. Past Medical History Past Medical History: Diabetes Mellitus Additional Past Medical History / Comment(s): blood clots, spots on liver History of Any Multi-Drug Resistant Organisms: None Reported Past Surgical History: No Surgical Hx Reported Additional Past Surgical History / Comment(s): kidney stones removed Past Anesthesia/Blood Transfusion Reactions: No Reported Reaction Additional Past Anesthesia/Blood Transfusion Reaction / Comm: First time having anesthesia yesterday 12/10/18 for kidney stone removal. Pt states that he did not have any side effects to anesthesia. Past Psychological History: No Psychological Hx Reported Smoking Status: Former smoker Past Alcohol Use History: Rare Additional Past Alcohol Use History / Comment(s): Quit smoking 40 years ago. pt states that he smoked about 1 pack per week. Past Drug Use History: None Reported - Past Family History Mother Family Medical History: Diabetes Mellitus Additional Family Medical History / Comment(s): kidney failure. at 49 Father Additional Family Medical History / Comment(s): Parkinson's Medications and Allergies Home Medications Medication Instructions Recorded Confirmed Type Acetaminophen Tab [Tylenol Tab] 650 mg PO Q4H PRN 12/11/18 12/11/18 History Allergies Allergy/AdvReac Type Severity Reaction Status Date / Time No Known Allergies Allergy Verified 12/11/18 15:13 Surgical - Exam Vital Signs Temp Pulse Resp BP Pulse Ox 98.3 F 88 16 209/101 97 12/11/18 14:59 12/11/18 14:59 12/11/18 14:59 12/11/18 14:59 12/11/18 14:59 Physical exam: General: Well-developed, well-nourished HEENT: Normocephalic, sclerae nonicteric Abdomen: Mild epigastric tenderness, nondistended Extremities: No edema Neuro: Alert and oriented Results - Labs 12/11/18 15:45 12/11/18 15:45 Abnormal Lab Results - Last 24 Hours (Table) 12/11/18 12/11/18 12/11/18 Range/Units 15:45 15:45 20:47 Lymphocytes # 0.7 L (1.0-4.8) k/uL BUN 26 H (9-20) mg/dL Glucose 107 H (74-99) mg/dL POC Glucose (mg/dL) 130 H (75-99) mg/dL Cholesterol (<200) mg/dL LDL Cholesterol, Calc (0-99) mg/dL HDL Cholesterol (40-60) mg/dL 12/12/18 12/12/18 12/12/18 Range/Units 03:24 06:38 11:43 Lymphocytes # (1.0-4.8) k/uL BUN (9-20) mg/dL Glucose (74-99) mg/dL POC Glucose (mg/dL) 196 H 219 H (75-99) mg/dL Cholesterol 209 H (<200) mg/dL LDL Cholesterol, Calc 125 H (0-99) mg/dL HDL Cholesterol 62 H (40-60) mg/dL Diabetes panel 12/11/18 12/12/18 Range/Units 15:45 03:24 Sodium 142 (137-145) mmol/L Potassium 4.6 (3.5-5.1) mmol/L Chloride 104 (98-107) mmol/L Carbon Dioxide 29 (22-30) mmol/L BUN 26 H (9-20) mg/dL Creatinine 1.15 (0.66-1.25) mg/dL Glucose 107 H (74-99) mg/dL Calcium 9.7 (8.4-10.2) mg/dL AST 32 (17-59) U/L ALT 37 (21-72) U/L Alkaline Phosphatase 79 (38-126) U/L Total Protein 6.7 (6.3-8.2) g/dL Albumin 3.9 (3.5-5.0) g/dL Triglycerides 108 (<150) mg/dL HDL Cholesterol 62 H (40-60) mg/dL Calcium panel 12/11/18 Range/Units 15:45 Calcium 9.7 (8.4-10.2) mg/dL Albumin 3.9 (3.5-5.0) g/dL Pituitary panel 12/11/18 Range/Units 15:45 Sodium 142 (137-145) mmol/L Potassium 4.6 (3.5-5.1) mmol/L Chloride 104 (98-107) mmol/L Carbon Dioxide 29 (22-30) mmol/L BUN 26 H (9-20) mg/dL Creatinine 1.15 (0.66-1.25) mg/dL Glucose 107 H (74-99) mg/dL Calcium 9.7 (8.4-10.2) mg/dL Adrenal panel 12/11/18 Range/Units 15:45 Sodium 142 (137-145) mmol/L Potassium 4.6 (3.5-5.1) mmol/L Chloride 104 (98-107) mmol/L Carbon Dioxide 29 (22-30) mmol/L BUN 26 H (9-20) mg/dL Creatinine 1.15 (0.66-1.25) mg/dL Glucose 107 H (74-99) mg/dL Calcium 9.7 (8.4-10.2) mg/dL Total Bilirubin 0.5 (0.2-1.3) mg/dL AST 32 (17-59) U/L ALT 37 (21-72) U/L Alkaline Phosphatase 79 (38-126) U/L Total Protein 6.7 (6.3-8.2) g/dL Albumin 3.9 (3.5-5.0) g/dL Assessment and Plan (1) Hiatal hernia Narrative/Plan: Will continue nasogastric tube to suction today. Will order upper GI for tomorrow morning to evaluate whether the acute obstruction is alleviated. Patient will likely require hiatal herniorrhaphy given the recurrent symptoms. Decision regarding timing of surgery will be based on tomorrow's upper GI. Current Visit: Yes Status: Acute Code(s): K44.9 - DIAPHRAGMATIC HERNIA WITHOUT OBSTRUCTION OR GANGRENE SNOMED Code(s): 85830297
[2018-12-12 14:16] VITALS: BMI 25.8
[2018-12-12 16:54] LABS: Glucose,Whole Blood 156 mg/dL (75-99)
[2018-12-12 20:04] LABS: Glucose,Whole Blood 123 mg/dL (75-99)
[2018-12-13] MEDS: hydrALAZINE HCL 20 MG/ML 1 ML VIAL IVP SCH ×2 (03:17→14:57)
[2018-12-13] MEDS: NITROGLYCERIN OINT 1 INCH/GM PACKET TOPICAL SCH (04:37)
[2018-12-13 06:43] LABS: Glucose,Whole Blood 147 mg/dL (75-99)
[2018-12-13 07:41] VITALS: RESP 18
[2018-12-13] MEDS: INSULIN ASPART (NovoLOG) 100 UNIT/ML VIAL SQ SCH ×2 (12:26→14:57)
[2018-12-13] MEDS: ASPIRIN 325 MG TAB PO SCH (12:26)
[2018-12-13 12:36] LABS: Glucose,Whole Blood 132 mg/dL (75-99)
--- NOTE | 2018-12-13 13:27 | FL ---
EXAMINATION TYPE: FL UGI limited DATE OF EXAM: 12/13/2018 COMPARISON: Chest CT from yesterday. HISTORY: Gastric dilatation with hernia. TECHNIQUE: A limited single contrast UGI study is performed through nasogastric tube as requested by ordering physician. A total of 34 seconds of fluoroscopic time was utilized during procedure. 12 spo t images are acquired. FINDINGS: [employer] image of the abdomen shows no nasogastric tube projecting below diaphragm there is p artial visualization of left-sided double-J ureter stent with left-sided renal calculi. There is levo convex scoliosis centered in the mid lumbar spine with multilevel spurring in the thoracolumbar spine there is persistent left basilar atelectasis and/or infiltrate and probable small left pleural effus ion. Contrast is injected into nasogastric tube with successful filling of gastric body and antrum and sub sequent emptying into pylorus and duodenal sweep all below the diaphragm, all of which appear nondila teri. IMPRESSION: Successful interval reduction of gastric dilatation and herniation of distal stomach abov e diaphragm after nasogastric tube placement.
--- NOTE | 2018-12-13 13:48 | P.PN ---
Subjective Progress Note Date: 12/13/18 Principal diagnosis: hiatal hernia Patient doing better today.the patient went for his upper GI earlier today. Upper GI showed resolution of the obstruction. Patient still having some dry heaves however throughout the night. Tolerating liquids currently. No pain at present. Objective - Vital Signs Vital signs: Vital Signs Temp 99.0 F 12/13/18 12:30 Pulse 79 12/13/18 12:30 Resp 18 12/13/18 12:30 BP 157/72 12/13/18 12:30 Pulse Ox 96 12/13/18 12:30 Intake & Output 12/12/18 12/13/18 12/13/18 18:59 06:59 18:59 Intake Total 0 Output Total 1000 325 400 Balance -1000 -325 -400 Weight 81.647 kg Intake: Oral 0 Output: Gastric Drainage 1000 Urine 325 400 Other: Voiding Method Toilet Toilet Toilet # Voids 0 1 # Bowel Movements 0 - Exam Abdomen: Soft, nontender, nondistended - Labs CBC & Chem 7: 12/11/18 15:45 12/11/18 15:45 Labs: Abnormal Lab Results - Last 24 Hours (Table) 12/12/18 12/12/18 12/13/18 Range/Units 16:52 20:03 06:41 POC Glucose (mg/dL) 156 H 123 H 147 H (75-99) mg/dL 12/13/18 Range/Units 12:32 POC Glucose (mg/dL) 132 H (75-99) mg/dL Assessment and Plan (1) Hiatal hernia Narrative/Plan: overall patient doing better today. Patient and I discussed surgical options. Begin full liquids at this time. May discharge if tolerates. Alternative would be for the patient to stay and have this hiatal hernia repaired during this hospital setting. I will discuss with the patient's nurse in the next few hours to see how he is progressing. Final decision pending. Current Visit: Yes Status: Acute Code(s): K44.9 - DIAPHRAGMATIC HERNIA WITHOUT OBSTRUCTION OR GANGRENE SNOMED Code(s): 43373407
[2018-12-13 15:26] VITALS: BP 155/74; PULSE 77; TEMP 98.5
[2018-12-13 16:27] LABS: Glucose,Whole Blood 176 mg/dL (75-99)
--- NOTE | 2018-12-13 17:22 | P.HPIM ---
History of Present Illness H&P Date: 12/12/18 Chief Complaint: Nausea vomiting, chest pain epigastric tenderness 82-year-old male typically seen in the office by nurse practitioner, presented to the emergency room complaining of chest discomfort episodic vomiting, patient was being evaluated by Dr. olson in the past for possible had a hernia has had an EGD as possible evaluation initially for a hiatal hernia which was not seen on recent EGD. Patient has had 2 CAT scans one last month and 1 this morning. On this mornings CT there appeared to be a hernia hiatus which contains the antrum and the proximal the duodenum causing some degree of obstruction. Patient was evaluated later in the afternoon by myself and the somewhat distended abdomen that appeared to be well reduced patient and and daughter state patient a large amount of brownish fluid and clear fluid were aspirated from the NG tube. No fever no tachycardia white count is within normal limits Review of Systems Constitutional: Reports as per HPI, Reports poor appetite Ears, nose, mouth and throat: Reports as per HPI Cardiovascular: Reports as per HPI Respiratory: Reports as per HPI Gastrointestinal: Reports as per HPI, Reports abdominal pain, Reports bloating, Reports indigestion, Reports nausea, Reports vomiting Genitourinary: Reports kidney stones (Recent evaluation, and treatment with lithotripsy per ) Musculoskeletal: Reports as per HPI Integumentary: Reports as per HPI Neurological: Reports as per HPI Past Medical History Past Medical History: Diabetes Mellitus Additional Past Medical History / Comment(s): blood clots, spots on liver History of Any Multi-Drug Resistant Organisms: None Reported Past Surgical History: No Surgical Hx Reported Additional Past Surgical History / Comment(s): kidney stones removed Past Anesthesia/Blood Transfusion Reactions: No Reported Reaction Additional Past Anesthesia/Blood Transfusion Reaction / Comment(s): First time having anesthesia yesterday 12/10/18 for kidney stone removal. Pt states that he did not have any side effects to anesthesia. Past Psychological History: No Psychological Hx Reported Smoking Status: Former smoker Past Alcohol Use History: Rare Additional Past Alcohol Use History / Comment(s): Quit smoking 40 years ago. pt states that he smoked about 1 pack per week. Past Drug Use History: None Reported - Past Family History Mother Family Medical History: Diabetes Mellitus Additional Family Medical History / Comment(s): kidney failure. at 49 Father Additional Family Medical History / Comment(s): Parkinson's Medications and Allergies Home Medications Medication Instructions Recorded Confirmed Type Acetaminophen Tab [Tylenol Tab] 650 mg PO Q4H PRN 12/11/18 12/11/18 History Allergies Allergy/AdvReac Type Severity Reaction Status Date / Time No Known Allergies Allergy Verified 12/11/18 15:13 Physical Exam Osteopathic Statement: *. No significant issues noted on an osteopathic structural exam other than those noted in the History and Physical/Consult. Vitals: Vital Signs Temp Pulse Resp BP BP BP Pulse Ox 12/13/18 16:00 18 12/13/18 15:25 98.5 F 77 18 155/74 97 12/13/18 12:30 99.0 F 79 18 157/72 96 12/13/18 07:15 98.4 F 86 18 137/68 94 L 12/13/18 03:44 16 12/13/18 03:40 98.0 F 89 14 149/69 96 12/12/18 23:44 16 12/12/18 23:36 98.2 F 77 15 126/82 97 12/12/18 23:02 65 92/52 12/12/18 20:45 68 92/58 12/12/18 20:15 65 89/51 12/12/18 20:00 16 12/12/18 19:30 95/53 12/12/18 19:15 101/53 12/12/18 18:46 98.7 F 82 15 136/72 96 Intake and Output 12/13/18 12/13/18 12/13/18 06:59 14:59 22:59 Intake Total 236 Output Total 400 Balance -400 236 Intake: Oral 236 Output: Urine 400 Other: Voiding Method Toilet Toilet Toilet # Voids 1 1 # Bowel Movements 0 General: [Patient awake, alert and oriented times 3. Patient in no acute distress.] HEENT: [PERRL. EOMI. No pharyngeal erythema or exudate.] Neck: [No adenopathy.] Cardiac: [Heart regular in rate and rhythm. No S3. No S4. No clicks, rubs. No murmur.] Lungs: [Clear to auscultation bilaterally.] Abdomen: [No mass. No organomegaly. Bowel sounds presnt and normoactive in all 4 quadrants.] Extremes: [No edema no cyanosis no claudication normal pulses] : [] Musculoskeletal: [No joint erythema, edema or tenderness.] Skin: [No rash.] Neurologic: [No lateralizing deficits. CN II - XII grossly intact.] Lymphatic: [No adenopathy.] Results CBC & Chem 7: 12/11/18 15:45 12/11/18 15:45 Labs: Abnormal Lab Results - Last 24 Hours (Table) 12/12/18 12/13/18 12/13/18 Range/Units 20:03 06:41 12:32 POC Glucose (mg/dL) 123 H 147 H 132 H (75-99) mg/dL 12/13/18 Range/Units 16:22 POC Glucose (mg/dL) 176 H (75-99) mg/dL Thrombosis Risk Factor Assmnt - Choose All That Apply Any of the Below Risk Factors Present?: Yes Each Factor Represents 1 point: Obesity (BMI >25) Each Risk Factor Represents 3 Points: Age 75 years or older Thrombosis Risk Factor Assessment Total Risk Factor Score: 4 Thrombosis Risk Factor Assessment Level: Moderate Risk Assessment and Plan (1) Chest pain Current Visit: Yes Status: Acute Code(s): R07.9 - CHEST PAIN, UNSPECIFIED SNOMED Code(s): 69012971 (2) Hiatal hernia Current Visit: Yes Status: Acute Code(s): K44.9 - DIAPHRAGMATIC HERNIA WITHOUT OBSTRUCTION OR GANGRENE SNOMED Code(s): 07669783 (3) Hypertension Current Visit: Yes Status: Acute Code(s): I10 - ESSENTIAL (PRIMARY) HYPERTENSION SNOMED Code(s): 30691702 (4) Nausea Current Visit: Yes Status: Acute Code(s): R11.0 - NAUSEA SNOMED Code(s): 747219520 (5) Abdominal pain Current Visit: No Status: Acute Code(s): R10.9 - UNSPECIFIED ABDOMINAL PAIN SNOMED Code(s): 92412005 Plan: Surgical consultation NG tube placed Consultation with secondary to recent lithotripsy Possible surgical intervention per Dr. Valera awaiting imaging in the morning to assess how hernia in fact has reduced Cardiology consultation as well first troponin was negative Time with Patient: Greater than 30
--- NOTE | 2018-12-13 17:29 | P.PN ---
Subjective Progress Note Date: 12/13/18 Principal diagnosis: Epigastric tenderness , nausea vomiting, hiatal hernia Patient significantly improved, upper GI so resolution of obstruction, dry heaves noted throughout the night tolerating liquids Objective - Vital Signs Vital signs: Vital Signs Temp 98.5 F 12/13/18 15:25 Pulse 77 12/13/18 15:25 Resp 18 12/13/18 16:00 BP 155/74 12/13/18 15:25 Pulse Ox 97 12/13/18 15:25 Intake & Output 12/12/18 12/13/18 12/13/18 18:59 06:59 18:59 Intake Total 0 236 Output Total 1000 325 400 Balance -1000 -325 -164 Weight 81.647 kg Intake: Oral 0 236 Output: Gastric Drainage 1000 Urine 325 400 Other: Voiding Method Toilet Toilet Toilet # Voids 0 1 # Bowel Movements 0 - Exam General: [Patient awake, alert and oriented times 3. Patient in no acute distress.] HEENT: [PERRL. EOMI. No pharyngeal erythema or exudate.] Neck: [No adenopathy.] Cardiac: [Heart regular in rate and rhythm. No S3. No S4. No clicks, rubs. No murmur.] Lungs: [Clear to auscultation bilaterally.] Abdomen: [No mass. No organomegaly. Bowel sounds presnt and normoactive in all 4 quadrants.] Extremes: [No edema no cyanosis no claudication normal pulses] : [] Musculoskeletal: [No joint erythema, edema or tenderness.] Skin: [No rash.] Neurologic: [No lateralizing deficits. CN II - XII grossly intact.] Lymphatic: [No adenopathy.] - Labs CBC & Chem 7: 12/11/18 15:45 12/11/18 15:45 Labs: Abnormal Lab Results - Last 24 Hours (Table) 12/12/18 12/13/18 12/13/18 Range/Units 20:03 06:41 12:32 POC Glucose (mg/dL) 123 H 147 H 132 H (75-99) mg/dL 12/13/18 Range/Units 16:22 POC Glucose (mg/dL) 176 H (75-99) mg/dL Assessment and Plan (1) Chest pain Current Visit: Yes Status: Acute Code(s): R07.9 - CHEST PAIN, UNSPECIFIED SNOMED Code(s): 22647833 (2) Hiatal hernia Current Visit: Yes Status: Acute Code(s): K44.9 - DIAPHRAGMATIC HERNIA WITHOUT OBSTRUCTION OR GANGRENE SNOMED Code(s): 07082599 (3) Hypertension Current Visit: Yes Status: Acute Code(s): I10 - ESSENTIAL (PRIMARY) HYPERTENSION SNOMED Code(s): 28271887 (4) Nausea Current Visit: Yes Status: Acute Code(s): R11.0 - NAUSEA SNOMED Code(s): 249622801 (5) Abdominal pain Current Visit: No Status: Acute Code(s): R10.9 - UNSPECIFIED ABDOMINAL PAIN SNOMED Code(s): 03919604 Plan: Reviewed Dr. Mancera note patient tolerates diet may be discharged home tonight Time with Patient: Greater than 30
--- NOTE | 2018-12-13 18:07 | P.DS ---
Providers Date of admission: 12/12/18 16:36 Expected date of discharge: 12/13/18 Attending physician: Rafael Marcelino Consults: 12/11/18 17:43 Consult Physician Urgent Consulting Provider: [facility] Consult Reason/Comments: Chest pain Do you want consulting provider notified?: Yes 12/12/18 08:09 Consult Physician Routine Consulting Provider: Jero Wallace Consult Reason/Comments: pain n/v after surgery Do you want consulting provider notified?: Yes 12/12/18 08:56 Consult Physician Urgent Consulting Provider: Joey Mancera Consult Reason/Comments: hiatal hernia Do you want consulting provider notified?: Yes Primary care physician: Rafael Marcelino - Discharge Diagnosis(es) (1) Chest pain See progress note from today Current Visit: Yes Status: Acute (2) Hiatal hernia Current Visit: Yes Status: Acute (3) Hypertension Current Visit: Yes Status: Acute (4) Nausea Current Visit: Yes Status: Acute (5) Abdominal pain Current Visit: No Status: Acute Patient Condition at Discharge: Stable Plan - Discharge Summary Discharge Rx Participant: Yes New Discharge Prescriptions: No Action Acetaminophen Tab [Tylenol Tab] 650 mg PO Q4H PRN PRN Reason: Pain Discharge Medication List Acetaminophen Tab [Tylenol Tab] 650 mg PO Q4H PRN 12/11/18 [History] Follow up Appointment(s)/Referral(s): Joey Mancera MD [Medical Doctor] - 12/21/18 9:50 am Rafael Marcelino Jr, [Primary Care Provider] - 1-2 days Discharge Disposition: HOME SELF-CARE
== END 2018-12-13 18:30 | disposition home or self-care (01) | DRG 392 ==
LOC: EC 14:56 → 1SOBS 17:43 → OBSVTOIN 12-12 16:36
PROVIDERS: ADMIT Family Medicine; ATTEND Family Medicine
PROC: 0D9670Z Drainage of Stomach with Drainage Device, Via Natural or Artificial Opening (ICD-10-PCS; principal; 2018-12-12)
DX: K44.0 Diaphragmatic hernia with obstruction, without gangrene (principal); E11.9 Type 2 diabetes mellitus without complications; I10 Essential (primary) hypertension; R07.89 Other chest pain; N20.0 Calculus of kidney; E66.9 Obesity, unspecified; Z68.25 Body mass index [BMI] 25.0-25.9, adult; Z86.718 Personal history of other venous thrombosis and embolism; Z87.891 Personal history of nicotine dependence; Z98.890 Other specified postprocedural states; Z83.3 Family history of diabetes mellitus; Z82.0 Family history of epilepsy and other diseases of the nervous system
CPT/HCPCS: 36415; 71046; 71250; 80053; 80061; 83735; 84484; 85025; 85610; 85730; 93005; 96374; 96375; 99285

== ENCOUNTER → 2018-12-21 | Outpatient (CLI) | payer MEDICARE, BC | END | disposition home or self-care (01) | LOC: LABWHC1 10:49 | PROVIDERS: ATTEND Surgery | DX: Z53.9 Procedure and treatment not carried out, unspecified reason (principal) | CPT/HCPCS: 36415; 86850; 86900; 86901; 93005 ==

== ENCOUNTER 2018-12-27 11:03 | Day surgery (SDC) | payer MEDICARE, BC ==
[~2018-12-27 11:03] MED LIST: DEXAMETHASONE SOD PHOSPHATE 10 MG/ML 1 ML VIAL IV ONE; LIDOCAINE 1% 20 ML VIAL (10MG/ML) FOR IV START INTRADERMA PRN; ONDANSETRON 4 MG/2 ML VIAL IVP ONE; ceFAZolin IN SWFI 2 GM/20 ML SYRINGE IVP ONE
[2018-12-27] MEDS: LACTATED RINGERS 1,000 ML IV SCH (11:57)
[2018-12-27 11:58] LABS: Glucose,Whole Blood 98 mg/dL (75-99)
[2018-12-27] MEDS ORDERED: PROPOFOL 10 MG/ML 20 ML VIAL IV ONE (12:51)
[2018-12-27] MEDS ORDERED: fentaNYL (PF) 50 MCG/ML 2 ML AMP ONE (12:51)
[2018-12-27] MEDS ORDERED: HYDROmorphone (PF) 1 MG/ML ONE (12:51)
[2018-12-27] MEDS ORDERED: LABETALOL 5 MG/ML VIAL MDV ONE (12:51)
[2018-12-27] MEDS ORDERED: NEOSTIGMINE 1 MG/ML 10 ML VIAL ONE (12:51)
[2018-12-27] MEDS ORDERED: PHENYLEPHRINE-0.9% NACL SYG 1 MG/10 ML SYRINGE ONE (12:51)
[2018-12-27] MEDS ORDERED: ROCURONIUM BROMIDE 10 MG/ML 10 ML VIAL IV ONE (12:51)
[2018-12-27] MEDS ORDERED: GLYCOPYRROLATE 0.2 MG/ML 2 ML VIAL ONE (12:51)
[2018-12-27] MEDS ORDERED: SUCCINYLCHOLINE CHLORIDE 100 MG/5 ML SYR IV ONE (12:51)
[2018-12-27] MEDS ORDERED: LIDOCAINE 1% INJ 10MG/ML (20 ML MDV) ONE (12:51)
[2018-12-27] MEDS ORDERED: BUPIVACAIN-EPI 0.5%-1:200,000 30 ML VIAL SQ ONE (13:23)
[2018-12-27] MEDS ORDERED: LACTATED RINGERS 1,000 ML IV ONE ×2 (14:00→16:42)
[2018-12-27] MEDS ORDERED: ONDANSETRON 4 MG/2 ML VIAL IVP PRN (17:12)
[2018-12-27] MEDS ORDERED: HYDROmorphone 1 MG/ML 1 ML SYRINGE IVP PRN (17:12)
--- NOTE | 2018-12-27 17:21 | P.OP ---
Date of Procedure: 12/27/18 Procedure(s) Performed: PROCEDURE(S) PERFORMED: PREOPERATIVE DIAGNOSIS: GERD, hiatal hernia POSTOPERATIVE DIAGNOSIS: Same PROCEDURE: Laparoscopic repair hiatal hernia with mesh placement SURGEON: Fiordaliza EBL: Minimal ANESTHESIA: General COMPLICATIONS: None OPERATIVE PROCEDURE: Patient was placed in the operating table in the supine position. He was placed under general anesthesia at that time. The abdomen was prepped and draped in the usual sterile fashion after the patient was placed in lithotomy. A 5 mm optical trocar was used to enter the abdominal cavity in the left upper quadrant. Insufflation took place to 15 monitor mercury. An additional right subxiphoid 5 mm trocar was then placed under direct relation and then removed. 2 additional 5 mm trochars were placed in the right upper quadrant and left upper quadrant under direct relation and a 10 mm trocar in the left upper quadrant inferior to the initial 5 mm spot. The left lower liver was retracted anteriorly using the Alon medium liver retractor. The diaphragm was inspected. The patient had a moderate sized hiatal hernia. The patient had a good portion of the gastrocolic mesentery present in the hernia itself and densely adhesed to the anterior aspect of the hiatal hernia within the mediastinum. On the right side of the hiatal hernia within the mediastinum the fat along the lesser curvature of the stomach was densely adherent. Gradually the fatty tissue adhesed into the hernia was lysed back into the perineal ca vity. The degree of inflammatory tissue in of the fat present in that hernia was quite significant and in some areas was greater than 1 cm in thickness. We're able to visualize the esophagus fairly early on during the procedure and thankfully the gastroesophageal junction was present at about the level of the diaphragm. A 40-Cymraes bougie dilator was utilized during the procedure for me to be able to identify the exact location of the esophagus. At that time we circumferentially dissected the phrenoesophageal ligament and hiatal hernia defect identifying the actual defect. Retrogastric dissection took place using both blunt dissection and the LigaSure device. Of note the majority of the dissection took place using the LigaSure device. Once the stomach was fully mobilized circumferentially the defect was closed posteriorly by reapproximating the right and left crura using 3 separate 2-0 Ethibond sutures which were tied down using the tie knot device. The patient and I had decided preoperatively that we would not perform a fundoplication. I did place a portion of the [place] [place] bio a mesh. This was trimmed to fit nicely around are exposed diaphragm and repair. This had a U shape after trimming the mesh. Again this is an absorbable mesh. The U was shaped so that the bottom aspect of the U was covering our repair. This was sutured to our repair in 3 separate locations u sing 2-0 Ethibond sutures again tied down using the tie knot device. An oral gastric tube was then inserted. The stomach was insufflated using 1 L of methylene blue. No leak was seen. This was then evacuated. The fascia at the 10 mm site was closed using a single 0 Vicryl stitch and the Nixon-Zoe technique. The insufflation was evacuated. The skin at all 5 incisions were closed using 4-0 Monocryl sutures. Skin glue was then applied. DISPOSITION: Stable to recovery room
[2018-12-27] MEDS: fentaNYL (PF) 50 MCG/ML 2 ML AMP IV PRN ×2 (17:48→17:53)
[2018-12-27] MEDS ORDERED: hydrALAZINE HCL 20 MG/ML 1 ML VIAL IVP ONE (18:00)
[2018-12-27] MEDS: FAMOTIDINE 20 MG/2 ML VIAL IV SCH (20:37)
[2018-12-27] MEDS: METOCLOPRAMIDE 5 MG/ML 2 ML VIAL IVP SCH ×2 (20:37→23:26)
[2018-12-27] MEDS ORDERED: hydrALAZINE HCL 20 MG/ML 1 ML VIAL IVP STA (21:29)
[2018-12-27] MEDS ORDERED: METOPROLOL TARTRATE 25 MG TAB PO STA (21:29)
[2018-12-27] MEDS: D5-0.45% NACL WITH KCL 20MEQ/L 1,000 ML IV SCH (22:12)
[2018-12-27] MEDS: HEPARIN SODIUM,PORCINE 5,000 UNIT/ML 1 ML VIAL SQ SCH (23:26)
[2018-12-28] MEDS: D5-0.45% NACL WITH KCL 20MEQ/L 1,000 ML IV SCH ×3 (03:31→18:25)
[2018-12-28] MEDS: METOCLOPRAMIDE 5 MG/ML 2 ML VIAL IVP SCH ×4 (05:21→23:21)
[2018-12-28] MEDS: LACTATED RINGERS 1,000 ML IV SCH (05:46)
[2018-12-28 08:12] LABS: Basophils % (A) 0 %; Eosinophils # (A) 0.1 k/uL (0-0.7); Eosinophils % (A) 1 %; HGB 13.1 gm/dL (13.0-17.5); Lymphocytes # (A) 0.6 k/uL (1.0-4.8); Lymphocytes % (A) 7 %; MCH 31.2 pg (25.0-35.0); MCHC 32.7 g/dL (31.0-37.0); MCV 95.5 fL (80.0-100.0); Mean Platelet Volume 6.8; Monocytes # (A) 0.6 k/uL (0-1.0); Monocytes % (A) 7 %; Neutrophils # (A) 7.5 k/uL (1.3-7.7); Neutrophils % (A) 84 %; Platelet Count 234 k/uL (150-450); RBC 4.19 m/uL (4.30-5.90); RDW 13.9 % (11.5-15.5)
[2018-12-28 08:25] LABS: Calcium 8.8 mg/dL (8.4-10.2); Potassium 4.5 mmol/L (3.5-5.1)
--- NOTE | 2018-12-28 10:08 | FL ---
EXAMINATION TYPE: FL esophagus cervic/pharynx DATE OF EXAM: 12/28/2018 LIMITED UGI-ESOPHAGRAM: CLINICAL HISTORY: Hiatal hernia repair TECHNIQUE: Limited esophagram is performed. 35 seconds fluoroscopy time was provided. 11 images were obtained. Fluoroscopy and overhead radiographs were obtained. FINDINGS: No extravasation of contrast is evident. Contrast passes readily through the gastroesophage al junction without hesitancy. No significant stenosis is evident. Moderate free air is under the jennifer phragms greater on the left. IMPRESSION: 1. No suspicious extravasation post Neftali fundoplication. 2. Moderate free air is present.
[2018-12-28] MEDS: HEPARIN SODIUM,PORCINE 5,000 UNIT/ML 1 ML VIAL SQ SCH ×3 (10:55→23:20)
[2018-12-28] MEDS: FAMOTIDINE 20 MG/2 ML VIAL IV SCH ×2 (10:55→20:03)
--- NOTE | 2018-12-28 10:58 | P.PN ---
<Radha Arreola - Last Filed: 12/28/18 10:57> Subjective Progress Note Date: 12/28/18 HISTORY OF PRESENT ILLNESS: Patient underwent hiatal hernia repair yesterday with Dr. Mancera. Patient seen and examined at the bedside. Patient reports his pain is tolerable. Reports minimal soreness at laparoscopic sites. Patient tolerating clear liquid diet. Denies nausea. PHYSICAL EXAM: VITAL SIGNS: Reviewed. GENERAL: Well-developed in no acute distress. HEENT: No sclera icterus. Extraocular movements grossly intact. Moist buccal mucosa. Head is atraumatic, normocephalic. ABDOMEN: Soft. Nondistended. Laparoscopic surgical sites clean dry intact without drainage. NEUROLOGIC: Alert and oriented. Cranial nerves II through XII grossly intact. ASSESSMENT: 1. GERD/Hiatal hernia, s/p hiatal hernia repair with mesh placement PLAN: 1. Continue clear liquid diet 2. Pain control 3. Activity as tolerated 4. Anticipate discharge home this afternoon after patient is evaluated by Dr. Mancera Nurse practitioner note has been reviewed by physician. Signing provider agrees with the documented findings, assessment, and plan of care. Objective - Vital Signs Vital signs: Vital Signs Temp 98.1 F 12/28/18 07:00 Pulse 71 12/28/18 07:00 Resp 16 12/28/18 07:00 BP 120/60 12/28/18 07:00 Pulse Ox 93 L 12/28/18 07:00 Intake & Output 12/27/18 12/28/18 12/28/18 18:59 06:59 18:59 Intake Total 2200 100 Output Total 15 800 Balance 2185 -700 Intake: IV 2200 Intake, IV Titration 100 Amount Lactated Ringers 1,000 ml 100 @ 0 mls/hr IV .[facility] Rx#:[id number] Output: Urine 800 Estimated Blood Loss 15 - Labs CBC & Chem 7: 12/28/18 07:42 12/28/18 07:42 Labs: Abnormal Lab Results - Last 24 Hours (Table) 12/28/18 12/28/18 Range/Units 07:42 07:42 RBC 4.19 L (4.30-5.90) m/uL Lymphocytes # 0.6 L (1.0-4.8) k/uL Sodium 136 L (137-145) mmol/L BUN 23 H (9-20) mg/dL Glucose 145 H (74-99) mg/dL <JudethierryJoey - Last Filed: 12/28/18 15:02> Subjective As above. Patient doing well. Tolerating clear liquids currently. Upper GI shows no leak or obstruction. Degree of a pneumoperitoneum not surprising. Points to his 10 mm trocar site incision as the only site of pain. Labs normal. No tachycardia. Will advance diet to full liquids. Possible discharge later today or tomorrow morning. Objective - Vital Signs Vital signs: Vital Signs Temp 98.1 F 12/28/18 07:00 Pulse 71 12/28/18 07:00 Resp 16 12/28/18 07:00 BP 120/60 12/28/18 07:00 Pulse Ox 93 L 12/28/18 07:00 Intake & Output 12/27/18 12/28/18 12/28/18 18:59 06:59 18:59 Intake Total 2200 100 Output Total 15 800 Balance 2185 -700 Weight 83.098 kg Intake: IV 2200 Intake, IV Titration 100 Amount Lactated Ringers 1,000 ml 100 @ 0 mls/hr IV .[employer] Rx#:[id number] Output: Urine 800 Estimated Blood Loss 15 - Labs CBC & Chem 7: 12/28/18 07:42 12/28/18 07:42 Labs: Abnormal Lab Results - Last 24 Hours (Table) 12/28/18 12/28/18 Range/Units 07:42 07:42 RBC 4.19 L (4.30-5.90) m/uL Lymphocytes # 0.6 L (1.0-4.8) k/uL Sodium 136 L (137-145) mmol/L BUN 23 H (9-20) mg/dL Glucose 145 H (74-99) mg/dL
[2018-12-28 12:53] VITALS: BMI 25.9
--- NOTE | 2018-12-28 22:32 | P.CONS ---
History of Present Illness - Reason for Consult Consult date: 12/28/18 Medical management of diabetes mellitus, gastroesophageal reflux disease, H Requesting physician: Joey Mancera - Chief Complaint Status post Hiatal hernia repair - History of Present Illness This is a 83-year-old gentleman with history of diabetes mellitus, gastroesophag eal reflux disease, ex-nicotine abuse, hiatal hernia, status post laparoscopic hiatal hernia repair with mesh placement. Time he procedure well, hemoglobin 13.1. Afebrile, normal WBC. Blood sugars controlled. During the night patient developed hypotension, requiring one time dose of hydralazine and metoprolol. Responded well and blood pressures currently have been in the 120s. Pain controlled. Passing flatus.. Tolerating clear liquid diet with no nausea vomiting or diarrhea. Denies chest pain, palpitations or increasing shortness of breath. Denies lightheadedness dizziness or focal deficits. Review of Systems CONSTITUTIONAL: No fever, no malaise, no fatigue. HEENT: No recent visual problems or hearing problems. Denied any sore throat. CARDIOVASCULAR: No chest pain, orthopnea, PND, no palpitations, no syncope. PULMONARY: No shortness of breath, no cough, no hemoptysis. GASTROINTESTINAL: No diarrhea, no nausea, no vomiting, pain controlled, status post surgery .Normoactive bowel sounds. NEUROLOGICAL: No headaches, no weakness, no numbness. HEMATOLOGICAL: Denies any bleeding or petechiae. GENITOURINARY: Denies any burning micturition, frequency, or urgency. MUSCULOSKELETAL/RHEUMATOLOGICAL: Denies any joint pain, swelling, or any muscle pain. ENDOCRINE: Denies any polyuria or polydipsia. PSYCHIATRIC: No anxiety, no depression Past Medical History Past Medical History: Diabetes Mellitus, GERD/Reflux Additional Past Medical History / Comment(s): spots on liver, hiatal hernia, "borderline diabetic"-diet control diabetic, kidney stones History of Any Multi-Drug Resistant Organisms: None Reported Past Surgical History: Tonsillectomy Additional Past Surgical History / Comment(s): lithotripsy, manjeet cataracts Past Anesthesia/Blood Transfusion Reactions: No Reported Reaction Additional Past Anesthesia/Blood Transfusion Reaction / Comm: . Past Psychological History: No Psychological Hx Reported Smoking Status: Former smoker Past Alcohol Use History: Rare Additional Past Alcohol Use History / Comment(s): Quit smoking 40 years ago. pt states that he smoked about 1 pack per week. Past Drug Use History: None Reported - Past Family History Mother Family Medical History: Diabetes Mellitus Additional Family Medical History / Comment(s): kidney failure. at 49 Father Family Medical History: Cancer Additional Family Medical History / Comment(s): Parkinson's Medications and Allergies Home Medications Medication Instructions Recorded Confirmed Type Acetaminophen Tab [Tylenol Tab] 650 mg PO Q4H PRN 12/11/18 12/27/18 History Hydrocodone/Acetaminophen [Sod 1 tab PO Q6HR PRN 3 Days #10 tab 12/27/18 Rx 5-325] Allergies Allergy/AdvReac Type Severity Reaction Status Date / Time No Known Allergies Allergy Verified 12/27/18 11:28 Physical Exam Vitals: Vital Signs Temp Pulse Resp BP Pulse Ox 12/28/18 19:05 98 F 76 18 128/63 93 L 12/28/18 15:19 97.7 F 81 18 99/62 93 L 12/28/18 07:00 98.1 F 71 16 120/60 93 L 12/28/18 01:26 97.9 F 89 16 121/66 95 Intake and Output 12/28/18 12/28/18 12/28/18 06:59 14:59 22:59 Output Total 800 300 Balance -800 -300 Output: Urine 800 300 Other: Voiding Method Toilet Urinal # Voids 2 1 Weight 83.098 kg PHYSICAL EXAM: VITAL SIGNS: As above GENERAL: Sitting up in bed, no acute distress HEENT: Conjunctivae normal. eyes normal. Oral mucosa moist NECK: No JVD. No thyroid enlargement. No LNs CARDIOVASCULAR: S1, S2 muffled. No murmur RESPIRATION: Breath sounds diminished in the bases. No rhonchi or crackles. No bronchial breathing. ABDOMEN: Soft, status post surgery. Laparoscopic sites clean dry and intact without drainage.Bowel sounds heard. LEGS: No edema. no swelling PSYCHIATRY: Alert and oriented -3, mood and affect normal. NERVOUS SYSTEM: Cranial N 2-12 grossly normal. Moves all 4 limbs. Diffuse weakness No focal deficits. Skin: no ulcer no rash Results CBC & Chem 7: 12/28/18 07:42 12/28/18 07:42 Labs: Abnormal Lab Results - Last 24 Hours (Table) 12/28/18 12/28/18 Range/Units 07:42 07:42 RBC 4.19 L (4.30-5.90) m/uL Lymphocytes # 0.6 L (1.0-4.8) k/uL Sodium 136 L (137-145) mmol/L BUN 23 H (9-20) mg/dL Glucose 145 H (74-99) mg/dL Assessment and Plan Assessment: -Hiatal hernia, status post hiatal hernia repair with mesh placement -Hypertension suspect reactive -Gastroesophageal reflux disease -Diabetes mellitus -Ex-nicotine abuse Plan: Continue on current medication regime ,monitoring and symptomatic treatment. Close monitoring of Accu-Cheks with NovoLog sliding scale added to med regime. Close monitoring of blood pressure, currently maintaining in the 120s, do not recommend antihypertensives at this time. Aggressive pulmonary toileting with incentive spirometer reinforced. Increase ambulation as tolerated. Pain management and diet advancement as per primary. Discharge planning in progress for tomorrow as per surgery further recommendations to follow. Thank you Dr. Mancera for allowing us to participate in the care of this pleasant gentleman. The impression and plan of care has been dictated as directed. : I performed a history and examination of this patient, discussed the same with the dictator. I agree with the dictator's note ,documented as a scribe. Any additional findings or plans will be noted.
[2018-12-29] MEDS: D5-0.45% NACL WITH KCL 20MEQ/L 1,000 ML IV SCH (02:43)
[2018-12-29] MEDS: LACTATED RINGERS 1,000 ML IV SCH (02:43)
[2018-12-29] MEDS: METOCLOPRAMIDE 5 MG/ML 2 ML VIAL IVP SCH (04:58)
[2018-12-29] MEDS ORDERED: INSULIN ASPART (NovoLOG) 100 UNIT/ML VIAL SQ SCH (07:30)
--- NOTE | 2018-12-29 09:08 | P.PN ---
Subjective Progress Note Date: 12/29/18 Principal diagnosis: Hiatal hernia Patient's postop day #2 hiatal hernia repair. 3 pound Vitals are stable blood pressure is well controlled patient has not had been medicated for hypertension since the immediately postop. Blood sugars have been 140 and lower otherwise doing very well patient has been discharged home per Dr. Cook about As far as I'm concerned we'll see patient in 1 week will not send him home on metformin or antihypertensives if patient has any problems or difficulties at all he's been instructed to present to the office Monday or Monday next week Objective - Vital Signs Vital signs: Vital Signs Temp 98.2 F 12/29/18 01:15 Pulse 81 12/29/18 01:15 Resp 16 12/29/18 01:15 BP 129/75 12/29/18 01:15 Pulse Ox 93 L 12/29/18 01:15 Intake & Output 12/28/18 12/29/18 12/29/18 18:59 06:59 18:59 Output Total 300 Balance -300 Weight 83.098 kg Output: Urine 300 Other: Voiding Method Toilet Urinal # Voids 2 3 - Exam General: [Patient awake, alert and oriented times 3. Patient in no acute distress.] HEENT: [PERRL. EOMI. No pharyngeal erythema or exudate.] Neck: [No adenopathy.] Cardiac: [Heart regular in rate and rhythm. No S3. No S4. No clicks, rubs. No murmur.] Lungs: [Clear to auscultation bilaterally.] Abdomen: [No mass. No organomegaly. Bowel sounds presnt and normoactive in all 4 quadrants.] Incision clean and dry Extremes: [No edema no cyanosis no claudication normal pulses] : [] Musculoskeletal: [No joint erythema, edema or tenderness.] Skin: [No rash.] Neurologic: [No lateralizing deficits. CN II - XII grossly intact.] Lymphatic: [No adenopathy.] - Labs CBC & Chem 7: 12/28/18 07:42 12/28/18 07:42 Assessment and Plan (1) GERD (gastroesophageal reflux disease) Current Visit: Yes Status: Acute Code(s): K21.9 - GASTRO-ESOPHAGEAL REFLUX DISEASE WITHOUT ESOPHAGITIS SNOMED Code(s): 752174315 (2) Paraesophageal hernia Current Visit: Yes Status: Acute Code(s): K44.9 - DIAPHRAGMATIC HERNIA WITHOUT OBSTRUCTION OR GANGRENE SNOMED Code(s): 9155024 Plan: Patient stable doing well we'll discharge home today Time with Patient: Greater than 30
[2018-12-29 09:44] VITALS: BP 143/68; PULSE 92; RESP 12; TEMP 97.6
== END 2018-12-29 10:02 | disposition home or self-care (01) ==
LOC: OR 11:03 → 4SSUR 16:51 → OR 12-29 10:02
PROVIDERS: ATTEND Surgery
DX: K44.9 Diaphragmatic hernia without obstruction or gangrene (principal); K21.9 Gastro-esophageal reflux disease without esophagitis; E11.9 Type 2 diabetes mellitus without complications; Z86.79 Personal history of other diseases of the circulatory system; Z87.442 Personal history of urinary calculi; Z87.891 Personal history of nicotine dependence; Z79.84 Long term (current) use of oral hypoglycemic drugs; Z79.899 Other long term (current) drug therapy
CPT/HCPCS: 43282; 80048; 85025; 74210; C1781; J0360; J1644 ×2; J1100; J2710; J2765 ×3; J2405; J2001; J3010; J1170 ×2; J2370; J0330; J2704; J0690; Q9967; 36415; 86850; 86900; 86901; 93005

== ENCOUNTER → 2019-01-07 | Outpatient (CLI) | payer MEDICARE, BC | LOC: LABWHC1 13:24 | PROVIDERS: ATTEND Urology | DX: N20.1 Calculus of ureter (principal) | CPT/HCPCS: 36415; 82565; 84520 ==

== ENCOUNTER → 2019-01-31 | Outpatient (CLI) | payer MEDICARE, BC ==
--- NOTE | 2019-01-31 13:57 | XR ---
EXAMINATION TYPE: XR KUB DATE OF EXAM: 01/31/2019 COMPARISON: 12/13/2018 INDICATION: Left renal calculus TECHNIQUE: Single view abdomen supine view FINDINGS: There is a nonspecific bowel gas pattern. Psoas margins are normal. No organomegaly is present. Left ureteral stent is present. There are 3 calcifications adjacent to the L4 level of the left urete ral stent. Couple small calcifications may be within the right renal hilar region. IMPRESSION: 1. Left ureteral stent. 2. Multiple calcifications adjacent to the proximal ureteral stent.
== END | disposition home or self-care (01) ==
LOC: RADXRMAIN 11:47
PROVIDERS: ATTEND Urology
DX: N28.89 Other specified disorders of kidney and ureter (principal); Z96.0 Presence of urogenital implants
CPT/HCPCS: 74018

== ENCOUNTER → 2019-04-29 | Outpatient (CLI) | payer MEDICARE, BC ==
--- NOTE | 2019-04-29 15:50 | US ---
EXAMINATION TYPE: US kidneys/renal and bladder DATE OF EXAM: 04/29/2019 COMPARISON: CT 11/21/18 CLINICAL HISTORY: 83-year-old male R93.4 HX OF HYDRONEPHROSIS. TECHNIQUE: Multiple sonographic images of the kidneys and bladder are obtained. FINDINGS: EXAM MEASUREMENTS: Right Kidney: 12.0 x 6.3 x 5.5 cm Left Kidney: 11.8 x 5.8 x 5.8 cm Post Void Residual Volume: 22.2 mL Right Kidney: Renal calculus mid pole = 0.7 cm, questionable additional renal calculus mid pole = 0.4 cm. No hydronephrosis. Left Kidney: Moderate hydro = 2.8 cm . 3 renal cysts noted: Upper = 1.6 x 1.5 x 1.1 cm Upper = 1.2 x 0.9 x 0.8 cm Lateral, mid = 1.1 x 0.8 x 0.7 cm Bladder: wnl Bilateral Jets seen: Yes. However, the left ureteral jet appears weak. Normal Post Void Residual: Increased but within acceptable limits (normal <50 mL). IMPRESSION: 1. Moderate left hydronephrosis. 2. Nonobstructive right renal calculi measuring up to 7 mm.
== END | disposition home or self-care (01) ==
LOC: RADUSWWP 10:34
PROVIDERS: ATTEND Urology
DX: N13.30 Unspecified hydronephrosis (principal); N20.0 Calculus of kidney
CPT/HCPCS: 76770

== ENCOUNTER → 2019-07-17 | Outpatient (CLI) | payer MEDICARE, BC ==
--- NOTE | 2019-07-17 11:14 | US ---
EXAMINATION TYPE: US kidneys/renal and bladder DATE OF EXAM: 07/17/2019 COMPARISON: US 04/29/2019 CLINICAL HISTORY: R93.4 HX HYDRONEPHROSIS. History of kidney stones, cysts and left hydronephrosis EXAM MEASUREMENTS: Right Kidney: 10.4 x 5.8 x 6.5 cm Left Kidney: 11.2 x 5.0 x 5.0 cm Right Kidney: 0.5cm echogenic shadowing focus Left Kidney: Severe hydronephrosis, lateral cortical cysts measuring 1.6cm and 1.1cm Bladder: wnl Bilateral Jets seen: yes There is no evidence for hydronephrosis at this point in time. No nephrolithiasis is seen. No danyell s are identified. The urinary bladder is anechoic. Bilateral ureteral jets are seen. IMPRESSION: 1. Severe left hydronephrosis appears slightly more pronounced than the moderate hydronephrosis of . There is cortical renal thinning suggesting acute on chronic component. 2. Nonobstructing 0.5 cm right renal calculus. No hydronephrosis of the right kidney.
== END | disposition home or self-care (01) ==
LOC: RADUSWWP 10:32
PROVIDERS: ATTEND Urology
DX: N13.2 Hydronephrosis with renal and ureteral calculous obstruction (principal); N13.30 Unspecified hydronephrosis
CPT/HCPCS: 76770; 82565; 84520

== ENCOUNTER → 2019-08-05 | Outpatient (CLI) | payer MEDICARE, BC ==
--- NOTE | 2019-08-05 09:36 | CT ---
EXAMINATION TYPE: CT abdomen pelvis w con DATE OF EXAM: 08/05/2019 COMPARISON: 11/21/2018 HISTORY: Left hydronephrosis CT DLP: 1293 mGycm CONTRAST: CT scan of the abdomen and pelvis is performed with Oral Contrast and with IV Contrast, patient injec teri with 80 mL of Isovue 300. FINDINGS: LUNG BASES-: No visible nodule. No infiltrate. LIVER/GB: No calcified gallstones. No space occupying hepatic lesion. Biliary tree is of normal ca liber. PANCREAS: No inflammation. No distinct mass. SPLEEN: No splenic enlargement. No lesion seen. ADRENALS: No nodule. No thickening. KIDNEYS/BLADDER: Proximal left ureteral calculus is identified measuring 4.3 mm with severe left-side d hydronephrosis. Previously noted large calculus measuring 1.5 cm is no longer visible. 1 mm calculu s upper pole right kidney. 1 mm calculus mid pole right kidney. BOWEL: Normal appendix. Normal bowel caliber. No inflammation. GENITAL ORGANS: No gross abnormality. LYMPH NODES: No greater than 1cm abdominal or pelvic lymph nodes are appreciated. AORTA: No significant abnormality. OSSEOUS STRUCTURES: No significant abnormality is seen. OTHER: No significant additional abnormality is seen. IMPRESSION: 1. Proximal left ureteral calculus is identified measuring 4.3 mm with severe left-sided hydronephros is. Previously noted large calculus measuring 1.5 cm is no longer visible.
== END | disposition home or self-care (01) ==
LOC: RADCTMAIN 07:09
PROVIDERS: ATTEND Urology
DX: N13.2 Hydronephrosis with renal and ureteral calculous obstruction (principal)
CPT/HCPCS: 82565; 84520; 74177; 36415; Q9967 ×2

== ENCOUNTER → 2019-09-30 | Outpatient (CLI) | payer MEDICARE, BC ==
--- NOTE | 2019-09-30 11:05 | US ---
EXAMINATION TYPE: US kidneys/renal and bladder DATE OF EXAM: 09/30/2019 COMPARISON: CT & US CLINICAL HISTORY: N13.30 L HYDRONEPHROSIS. Left [place], pt states recent lithotripsy EXAM MEASUREMENTS: Right Kidney: 10.9 x 5.9 x 5.5 cm Left Kidney: 10.1 x 4.8 x 4.6 cm Right Kidney: No evidence of hydro, possible small calculi scattered throughout kidney, largest= 6mm Left Kidney: Cyst lateral= 1.6 x 1.2 x 1.6 cm/ Mild to moderate hydro still present on today's exam Bladder: Small bladder diverticula visualized Bilateral Jets seen: Yes The urinary bladder is anechoic. Bilateral ureteral jets are seen. IMPRESSION: 1. [id number] left-sided hydronephrosis improved from previous.
== END | disposition home or self-care (01) ==
LOC: RADUSWWP 10:26
PROVIDERS: ATTEND Urology
DX: N13.30 Unspecified hydronephrosis (principal)
CPT/HCPCS: 36415; 76770; 82565; 84520

== ENCOUNTER → 2020-02-19 | Outpatient (CLI) | payer MEDICARE, BC ==
--- NOTE | 2020-02-19 09:23 | CT ---
EXAMINATION TYPE: CT abdomen pelvis wo con DATE OF EXAM: 02/19/2020 COMPARISON: 08/05/2019 INDICATION: Hydronephrosis DLP: 936 mGycm, Automated exposure control for dose reduction was used. CONTRAST: 0 mL of Isovue 300. Study performed without Oral Contrast TECHNIQUE: Axial images were obtained from above the diaphragm to the pubic rami in the axial plane a t 5 mm thick sections. Reconstructed images are reviewed on the computer in the coronal plane. FINDINGS: Limited CT sections are obtained the lung bases. The lung bases are clear. Hiatal hernia is present . CT ABDOMEN: Liver: Normal Spleen: Normal Pancreas: There is diffuse fatty infiltration within the atrophic pancreas. Adrenal glands: The adrenal glands are normal. Gallbladder: Normal Kidneys: No masses are evident. No hydronephrosis is present. No cysts are present. Multiple right -sided renal stones without obstruction or evident. This would include a 0.2 and 0.3 cm calcification in the posterior inferior pole, a mid lateral 0.2 cm calcification, a 0.1 cm lateral upper renal sto ne and a superior medial right upper renal stone measuring 0.2 cm. Aorta: Vascular calcification is within the aorta. Inferior vena cava: Normal. CT PELVIS: Multiple diverticular changes are within the sigmoid colon. No acute diverticulitis is evident. Study is without oral contrast limiting bowel evaluation. Appendix: Not visualized. No suspicious dilated tubular structure or inflammatory changes evident. Urinary bladder: Normal. Genitourinary structures: Prostate contains calcification. Osseous structures: No suspicious lytic or sclerotic lesions. Degenerative disc changes are within th e lumbar spine. Some mild sacroiliac joint degenerative changes are present. Degenerative changes are at the bilateral hips and symphysis pubis. IMPRESSIONS: 1. Multiple right-sided nonobstructing renal stones. 2. Diverticulosis without acute diverticulitis.
== END | disposition home or self-care (01) ==
LOC: RADCTMAIN 08:40
PROVIDERS: ATTEND Family Medicine
DX: N13.2 Hydronephrosis with renal and ureteral calculous obstruction (principal); K57.90 Diverticulosis of intestine, part unspecified, without perforation or abscess without bleeding
CPT/HCPCS: 74176

== ENCOUNTER → 2021-07-09 | Outpatient (CLI) | payer MEDICARE, BC ==
--- NOTE | 2021-07-09 08:20 | XR ---
EXAMINATION TYPE: XR chest 2V DATE OF EXAM: 07/09/2021 COMPARISON: 12/11/2018 HISTORY: 85-year-old male cardiomegaly, CHF, edema, swollen feet. TECHNIQUE: Frontal and lateral views FINDINGS: Heart normal size. Mild elongation/tortuosity of the thoracic aorta. Mild hyperinflation. Some mild p atchy density at the inferior lingula. No other consolidation or pleural effusion. IMPRESSION: Some mild patchy inferior lingular atelectasis versus early infiltrate. Correlate with patient's symp toms. No cardiomegaly or albin pulmonary edema.
[2021-07-09 09:01] LABS: Albumin 3.8 g/dL (3.5-5.0); Calcium 9.9 mg/dL (8.4-10.2); Potassium 5.2 mmol/L (3.5-5.1); Total Bilirubin 0.7 mg/dL (0.2-1.3); Total Protein 6.7 g/dL (6.3-8.2); Uric Acid 7.1 mg/dL (3.5-8.5)
== END | disposition home or self-care (01) ==
LOC: RADXRMAIN 07:23
PROVIDERS: ATTEND Family Medicine
DX: I51.7 Cardiomegaly (principal); I50.9 Heart failure, unspecified
CPT/HCPCS: 71046; 80053; 83036; 84443; 84550

== ENCOUNTER → 2022-01-11 | Outpatient (CLI) | payer MEDICARE, BC ==
--- NOTE | 2022-01-11 08:19 | XR ---
EXAMINATION TYPE: XR chest 2V DATE OF EXAM: 01/11/2022 COMPARISON: 07/09/2021 TECHNIQUE: PA and lateral views submitted. HISTORY: Cardiac dysrhythmia FINDINGS: The lungs are clear and there is no pneumothorax, pleural effusion, or focal pneumonia. Heart size is normal. Hyperinflation noted. Hypertrophic and degenerative change of the spine. Arthropathy of th e shoulders. Biapical pleural thickening. IMPRESSION: 1. No acute process. Correlate for COPD.
[2022-01-11 15:18] LABS: HCT 42.4 % (39.6-50.0); HGB 13.1 g/dL (13.0-17.0); MCH 30.5 pg (27.0-32.0); MCHC 30.9 g/dL (32.0-37.0); MCV 98.8 fL (80.0-97.0); Mean Platelet Volume 10.4 fL (9.5-12.2); NRBC Per 100 WBC 0 /100 WBCS (0.0-0.0); Platelet Count 228 X 10*3/uL (140-440); RBC 4.29 X 10*6/uL (4.40-5.60); RDW 14.4 % (11.5-14.5); WBC 4.62 X 10*3/uL (4.50-10.00)
[2022-01-11 15:36] LABS: BUN/Creat Ratio 19.93 Ratio (12.00-20.00); Globulin 2.7 g/dL (1.6-3.3)
[2022-01-11 15:37] LABS: Albumin 4.2 g/dL (3.8-4.9); Albumin/Globulin Ratio 1.52 (1.60-3.17); Blood Urea Nitrogen 28.5 mg/dL (9.0-27.0); Calcium 9.4 mg/dL (8.7-10.3); Carbon Dioxide 22.6 mmol/L (20.0-27.5); Potassium 5.2 mmol/L (3.5-5.5); Total Bilirubin 0.4 mg/dL (0.30-1.20); Total Protein 6.9 g/dL (6.2-8.2); Uric Acid 0.2 mg/dL (3.7-8.7)
== END | disposition home or self-care (01) ==
LOC: LABWHC1 07:17
PROVIDERS: ATTEND Family Medicine
DX: I50.9 Heart failure, unspecified (principal); M10.9 Gout, unspecified; T80.22XA Acute infection following transfusion, infusion, or injection of blood and blood products, initial encounter; I49.9 Cardiac arrhythmia, unspecified
CPT/HCPCS: 36415; 71046; 80053; 83036; 84443; 84550; 85027; 93005